=== PATIENT | male | born 1975 | race African-American/Black ===

== ENCOUNTER 2018-08-02 21:50 | Emergency (ER) | payer OTHER, SELFPAY ==
[2018-08-02] MEDS ORDERED: TETRACAINE HCL 0.5% 2ML OPTH ONE ×2 (22:27→22:42)
[2018-08-02] MEDS ORDERED: FLUORESCEIN SODIUM 1 MG/WRAP ONE ×2 (22:27→22:42)
--- NOTE | 2018-08-02 22:36 | EDPHYS ---
Physician Documentation [facility] Name: Primo Leos Age: 42 yrs Sex: Male : 1975 Arrival Date: 08/02/2018 Time: 21:54 Bed 30 Private MD: ED Physician Lorenzo Santizo HPI: 08/02 22:31 This 42 yrs old Black Male presents to ER via Ambulatory with complaints of Foreign tw4 Body In Eye. 22:31 The patient is experiencing pain, The patient sustained Unknown. to the right eye. tw4 Onset: The symptoms/episode began/occurred 2 day(s) ago. Duration: the symptoms are continuous. Aggravated by blinking, Alleviated by covering eye. Associated signs and symptoms: Pertinent positives: None. Pertinent negatives: None. Severity of symptoms: At their worst the symptoms were moderate in the emergency department the symptoms are unchanged. The patient has not experienced similar symptoms in the past. Historical: - Allergies: 22:26 No Known Allergies; bb - Home Meds: 22:26 None [Active]; bb - PMHx: 22:26 None; bb - PSHx: 22:26 None; bb - Immunization history:: Adult Immunizations up to date, Last tetanus immunization: up to date. - Social history:: Smoking status: Patient uses tobacco products, smokes one pack cigarettes per day. - Ebola Screening: : No symptoms or risks identified at this time. ROS: 22:31 Constitutional: Negative for fever, chills, and weight loss. tw4 22:31 Eyes: Positive for foreign body sensation, Negative for blurry vision, discharge, injury or acute deformity, itching, matting, photophobia, redness, swelling, tearing. Exam: 22:31 Constitutional: This is a well developed, well nourished patient who is awake, alert, tw4 and in no acute distress. Head/Face: Normocephalic, atraumatic. 22:31 Eyes: Periorbital structures: appear normal, Pupils: no acute changes, Conjunctiva: injected, in the right eye, Corneas: foreign body, at 12 o'clock, a piece of plastic. Vital Signs: 22:26 BP 133 / 86; Pulse 70; Resp 16 S; Temp 99.1(O); Pulse Ox 97% on R/A; Weight 113.4 kg bb (R); Height 6 ft. 1 in. (185.42 cm) (R); Pain 9/10; 22:26 Body Mass Index 32.98 (113.40 kg, 185.42 cm) bb Visual Acuity: 22:26 Left Eye Visual acuity 20/15, Pupil size 3 mm, ; Right Eye Visual acuity 20/20, Pupil bb size 3 mm, ; Both Eyes Visual acuity 20/15; Without Lenses; Procedures: 22:31 Foreign Body Removal: a piece of metal, from the right eye, conjunctiva by using a tw4 cotton-tipped swab, normal saline irrigation, The patient tolerated the removal well. MDM: 22:12 Patient medically screened. tw4 22:31 Differential diagnosis: Corneal abrasion of right eye. Corneal ulcer of right eye. tw4 Foreign body in right eye. Data reviewed: vital signs, nurses notes. Counseling: I had a detailed discussion with the patient and/or guardian regarding: the historical points, exam findings, and any diagnostic results supporting the discharge/admit diagnosis. Special discussion: I discussed with the patient/guardian in detail that at this point there is no indication for admission to the hospital. It is understood, however, that if the symptoms persist or worsen the patient needs to return immediately for re-evaluation. 08/02 22:29 Order name: Eye Tray; Complete Time: 22:30 bb 08/02 22:29 Order name: Fluoresene Opth strip; Complete Time: 22:30 bb Administered Medications: 22:20 Drug: Tetracaine Drops 0.5 % 1 drops Route: Ophthalmic; Site: right eye; bb 22:30 Follow up: Response: Marked relief of symptoms bb 22:20 Drug: Fluorescein Strip 1 strip Route: Ophthalmic; Site: right eye; bb 22:30 Follow up: Response: No adverse reaction bb Disposition: 08/02/18 22:35 Discharged to Home. Impression: Injury of conjunctiva and corneal abrasion without foreign body, right eye, Foreign body in cornea, right eye. - Condition is Stable. - Discharge Instructions: Corneal Abrasion, Eye Foreign Body. - Prescriptions for Gentamicin 0.3 % Ophthalmic Drops - instill 1 drop by OPHTHALMIC route every 4 hours for 7 days; 1 bottle. - Medication Reconciliation Form, Thank You Letter, Antibiotic Education, Prescription Opioid Use form. - Follow up: Private Physician; When: Upon discharge from the Emergency Department; Reason: If symptoms return, Recheck today's complaints, Continuance of care. - Problem is new. - Symptoms have improved. Signatures: Renu Silverio RN RN Lorenzo Van MD MD tw4 Corrections: (The following items were deleted from the chart) 22:48 22:35 08/02/2018 22:35 Discharged to Home. Impression: Injury of conjunctiva and bb corneal abrasion without foreign body, right eye; Foreign body in cornea, right eye. Condition is Stable. Forms are Medication Reconciliation Form, Thank You Letter, Antibiotic Education, Prescription Opioid Use. Follow up: Private Physician; When: Upon discharge from the Emergency Department; Reason: If symptoms return, Recheck today's complaints, Continuance of care. Problem is new. Symptoms have improved. tw4
--- NOTE | 2018-08-02 22:36 | ER ---
Nurse's Notes [facility] Name: Primo Leos Age: 42 yrs Sex: Male : 1975 Arrival Date: 08/02/2018 Time: 21:54 Bed 30 Private MD: Diagnosis: Injury of conjunctiva and corneal abrasion without foreign body, right eye;Foreign body in cornea, right eye Presentation: 08/02 22:06 Presenting complaint: Patient states: he was working on his car about 2 days ago and bb got something in his right eye which has felt irritated ever since then his noticed he had an orange spot on his cornea. Transition of care: patient was not received from another setting of care. Onset of symptoms was July 30, 2018. Risk Assessment: Do you want to hurt yourself or someone else? Patient reports no desire to harm self or others. Initial Sepsis Screen: Does the patient meet any 2 criteria? No. Patient's initial sepsis screen is negative. Does the patient have a suspected source of infection? No. Patient's initial sepsis screen is negative. Care prior to arrival: None. 22:06 Method Of Arrival: Ambulatory bb 22:06 Acuity: BRAEDEN 4 bb Triage Assessment: 22:26 General: Appears in no apparent distress. uncomfortable, Behavior is calm, cooperative. bb Pain: Complains of pain in right eye Pain currently is 9 out of 10 on a pain scale. EENT: Eyes are tearing on right eye with foreign body noted in cornea. Neuro: Level of Consciousness is awake, alert, obeys commands, Oriented to person, place, time, situation. Cardiovascular: No deficits noted. Respiratory: Respiratory effort is even, unlabored. GI: No signs and/or symptoms were reported involving the gastrointestinal system. Derm: Skin is dry, Skin is normal, Skin temperature is warm. Musculoskeletal: Circulation, motion, and sensation intact. Historical: - Allergies: 22:26 No Known Allergies; bb - Home Meds: 22:26 None [Active]; bb - PMHx: 22:26 None; bb - PSHx: 22:26 None; bb - Immunization history:: Adult Immunizations up to date, Last tetanus immunization: up to date. - Social history:: Smoking status: Patient uses tobacco products, smokes one pack cigarettes per day. - Ebola Screening: : No symptoms or risks identified at this time. Screenin:31 Abuse screen: Denies threats or abuse. Nutritional screening: No deficits noted. bb Tuberculosis screening: No symptoms or risk factors identified. Fall Risk None identified. Assessment: 22:31 Reassessment: No changes from previously documented assessment. see triage assessment. bb Vital Signs: 22:26 BP 133 / 86; Pulse 70; Resp 16 S; Temp 99.1(O); Pulse Ox 97% on R/A; Weight 113.4 kg bb (R); Height 6 ft. 1 in. (185.42 cm) (R); Pain 9/10; 22:26 Body Mass Index 32.98 (113.40 kg, 185.42 cm) bb Visual Acuity: 22:26 Left Eye Visual acuity 20/15, Pupil size 3 mm, ; Right Eye Visual acuity 20/20, Pupil bb size 3 mm, ; Both Eyes Visual acuity 20/15; Without Lenses; ED Course: 21:54 Patient arrived in ED. es 22:12 Lorenzo Santizo MD is Attending Physician. tw4 22:24 Renu Silverio, RN is Primary Nurse. bb 22:25 Triage completed. bb 22:26 Arm band placed on Patient placed in an exam room, on a stretcher, on pulse oximetry. bb Family accompanied patient. 22:31 Patient has correct armband on for positive identification. Bed in low position. Call bb light in reach. Adult w/ patient. Pulse ox on. NIBP on. 22:31 Assist provider with eye exam of right eye. using fluorescein stain, Performed by caleb Santizo MD Patient tolerated well. Patient did not have IV access during this emergency room visit. Administered Medications: 22:20 Drug: Tetracaine Drops 0.5 % 1 drops Route: Ophthalmic; Site: right eye; bb 22:30 Follow up: Response: Marked relief of symptoms bb 22:20 Drug: Fluorescein Strip 1 strip Route: Ophthalmic; Site: right eye; bb 22:30 Follow up: Response: No adverse reaction bb Outcome: 22:35 Discharge ordered by . tw4 22:47 Discharged to home ambulatory, with family. bb 22:47 Condition: stable 22:47 Discharge instructions given to patient, Instructed on discharge instructions, follow up and referral plans. medication usage, Demonstrated understanding of instructions, follow-up care, medications, Prescriptions given X 1. 22:48 Patient left the ED. bb Signatures: Kimber Oneill Brenda, RN RN bb Lorenzo Santizo MD MD tw4
== END 2018-08-02 22:48 | disposition home or self-care (01) ==
LOC: ER 21:50
PROC: 08C8XZZ Extirpation of Matter from Right Cornea, External Approach (ICD-10-PCS; principal; 2018-08-02)
DX: T15.01XA Foreign body in cornea, right eye, initial encounter (principal); F17.210 Nicotine dependence, cigarettes, uncomplicated
CPT/HCPCS: 99284

== ENCOUNTER 2020-12-15 14:01 | Emergency (ER) | payer OTHER, SELFPAY ==
[2020-12-15 16:36] LABS: Absolute Lymphocytes (CBC) 1.7 K/uL (0.7-4.9); Basophils % 0.6 % (0-1.3); Hematocrit 46.7 % (39.6-49.0); Lymphocytes % 13.4 % (15.3-44.8); MPV 8.5 fL (7.6-11.3); RBC Red Blood Cell Count 5.58 M/uL (4.33-5.43)
[2020-12-15 16:49] LABS: Potassium 3.8 mmol/L (3.5-5.1); Uric Acid 3.2 mg/dL (3.5-7.2)
[2020-12-15] MEDS ORDERED: NA CHLORIDE 0.9% 1,000 ML ONE (17:08)
[2020-12-15] MEDS ORDERED: KETOROLAC 30 MG/ML INJ ONE (17:08)
[2020-12-15] MEDS ORDERED: HYDROCODONE/APAP 7.5/325 MG TAB ONE (17:08)
[2020-12-15] MEDS ORDERED: CLINDAMYCIN 900MG/D5W 900 MG/50 ML IVPB IV ONE (17:08)
--- NOTE | 2020-12-15 17:42 | RAD REPORT ---
EXAM DESCRIPTION: RAD - Elbow Right 3 View - 12/15/2020 5:21 pm CLINICAL HISTORY: PAIN COMPARISON: None FINDINGS: No right elbow fracture. Small olecranon spur. No effusion. IMPRESSION: No acute osseus abnormality involving the right elbow.
--- NOTE | 2020-12-15 17:43 | EDPHYS ---
Physician Documentation [facility] Name: Primo Leos Age: 45 yrs Sex: Male : 1975 Arrival Date: 12/15/2020 Time: 14:07 Bed 25 Private MD: ED Physician Lorenzo Santizo HPI: 12/15 16:05 This 45 yrs old Black Male presents to ER via Ambulatory with complaints of Elbow pain, cp Arm Pain. 16:05 The patient or guardian complains of pain, that is acute, swelling, tenderness. The cp complaints affect the right elbow. Context: resulted from unknown cause. Onset: The symptoms/episode began/occurred 2 day(s) ago. 16:05 Treatment prior to arrival includes: no previous treatment. Associated signs and cp symptoms: Pertinent positives: radiating pain to chest, Pertinent negatives: decreased range of motion, fever, injury. Historical: - Allergies: 14:41 No Known Allergies; ss - Home Meds: 14:41 None [Active]; ss - PMHx: 14:41 None; ss - PSHx: 14:41 None; ss - Immunization history:: Adult Immunizations unknown, Client reports having NOT received the Covid vaccine. - Social history:: Smoking status: Patient reports the use of cigarette tobacco products, smokes one pack cigarettes per day. ROS: 16:10 Constitutional: Negative for body aches, chills, fever, poor PO intake. cp 16:10 MS/extremity: Positive for pain, swelling, tenderness, of the right elbow, Negative for cp injury or acute deformity, decreased range of motion, paresthesias. 16:10 Eyes: Negative for injury, pain, redness, and discharge. cp 16:10 ENT: Negative for ear pain, sore throat, difficulty swallowing, difficulty handling secretions. 16:10 Cardiovascular: Negative for edema, palpitations. 16:10 Respiratory: Negative for cough, shortness of breath, wheezing. 16:10 Abdomen/GI: Negative for abdominal pain, nausea, vomiting, and diarrhea. 16:10 Neuro: Negative for altered mental status, headache, weakness. 16:10 All other systems are negative. Exam: 16:15 Constitutional: The patient appears in no acute distress, alert, awake, cp non-diaphoretic, non-toxic, well developed, well nourished, uncomfortable. 16:15 Head/Face: Normocephalic, atraumatic. cp 16:15 Eyes: Periorbital structures: appear normal, Conjunctiva: normal, no exudate, no injection, Sclera: no appreciated abnormality, Lids and lashes: appear normal, bilaterally. 16:15 ENT: External ear(s): are unremarkable, Nose: is normal, Posterior pharynx: Airway: no evidence of obstruction, patent. 16:15 Chest/axilla: Inspection: normal. 16:15 Cardiovascular: Rate: normal, Rhythm: regular. 16:15 Respiratory: the patient does not display signs of respiratory distress, Respirations: normal, no use of accessory muscles, no retractions, labored breathing, is not present. 16:15 Abdomen/GI: Exam negative for discomfort, distension, guarding, Inspection: abdomen appears normal. 16:15 Musculoskeletal/extremity: Extremities: grossly normal except: noted in the posterior of right elbow: erythema, pain, swelling, tenderness, ROM: full passive range of motion, in the right elbow, limited passive range of motion due to pain, in the right elbow, no signs of elbow joint effusion, small amount purulent drainage from right elbow bursa, mild erythema and swelling extending proximal and distal to right elbow, no circumferential swelling and/or erythema noted. Vital Signs: 14:39 BP 130 / 82; Pulse 86; Resp 20; Temp 97.1(TE); Pulse Ox 95% on R/A; Weight 95.25 kg; ss Height 6 ft. 1 in. (185.42 cm); Pain 10/10; 16:26 BP 112 / 68; Pulse 81; Resp 16; Temp 97.4(TE); Pulse Ox 96% ; ss 17:55 BP 110 / 74; Pulse 81; Resp 16; Pulse Ox 94% ; zb 14:39 Body Mass Index 27.71 (95.25 kg, 185.42 cm) ss MDM: 16:33 Patient medically screened. cp 17:00 Differential diagnosis: cellulitis, bursitis, abscess, gout. cp 17:00 Differential diagnosis: closed fracture, contusion, joint effusion, bursitis, cp cellulitis. 17:34 Test interpretation: by ED physician or midlevel provider: xrays of right elbow cp negative for fracture and/or joint effusion. 17:40 Data reviewed: vital signs, nurses notes, lab test result(s), radiologic studies, plain cp films. Counseling: I had a detailed discussion with the patient and/or guardian regarding: the historical points, exam findings, and any diagnostic results supporting the discharge/admit diagnosis, lab results, radiology results, the need for outpatient follow up, a orthopedic surgeon. Response to treatment: the patient's symptoms have markedly improved after treatment, Pain improved, patient resting comfortably in exam room, and as a result, I will discharge patient. 12/15 16:04 Order name: Wound Culture cp 12/15 16:04 Order name: CBC with Diff; Complete Time: 17:32 cp 12/15 17:33 Interpretation: Normal except: WBC 12.70; RBC 5.58; EOSINOPHIL % 4.9; NEUT A 9.2; EOSA cp 0.6. 12/15 16:04 Order name: BMP; Complete Time: 17:32 cp 12/15 17:33 Interpretation: Normal except: NA 134; GLUC 257; BUN 19; GFR 85. cp 12/15 16:04 Order name: ESR; Complete Time: 17:32 cp 12/15 16:04 Order name: CRP; Complete Time: 17:32 cp 12/15 17:33 Interpretation: Abnormal: C-REACTIVE PROT 124.00. cp 12/15 16:04 Order name: Uric Acid; Complete Time: 17:32 cp 12/15 17:33 Interpretation: Abnormal: URIC 3.2. cp 12/15 16:04 Order name: IV; Complete Time: 16:23 cp 12/15 16:04 Order name: XRAY Elbow RIGHT 3 view; Complete Time: 17:44 cp 12/15 17:44 Interpretation: Report reviewed. cp 12/15 16:04 Order name: Wound Culture EDDE 12/15 17:43 Order name: Sling; Complete Time: 18:06 cp Administered Medications: 17:01 Drug: Clindamycin 900 mg Route: IVPB; Infused Over: 30 mins; Site: left antecubital; zb 18:00 Follow up: Response: No adverse reaction; IV Status: Completed infusion; IV Intake: zb 100ml 17:01 Drug: Ketorolac 15 mg Route: IVP; Site: left antecubital; zb 18:00 Follow up: Response: No adverse reaction; Marked relief of symptoms; Pain is decreased zb 17:01 Drug: Hydrocodone-Acetaminophen (7.5 mg-325 mg) 1 tabs {Note: RASS +1.} Route: PO; zb 18:00 Follow up: Response: No adverse reaction; Pain is decreased; RASS: Alert and Calm (0) zb 17:01 Drug: NS 0.9% 1000 ml Route: IV; Rate: 1 bolus; Site: left antecubital; zb 18:00 Follow up: Response: No adverse reaction; IV Status: Completed infusion; IV Intake: zb 1000ml Disposition: 17:50 Chart complete. cp 18:34 Co-signature as Attending Physician, Lorenzo Santizo MD I agree with the assessment and tw4 plan of care. Disposition Summary: 12/15/20 17:42 Discharge Ordered Location: Home cp Problem: new cp Symptoms: have improved cp Condition: Stable cp Diagnosis - Olecranon bursitis, right elbow cp - Cellulitis of right upper limb cp Followup: cp - With: Kennedy Leigh MD - When: 2 - 3 days - Reason: Recheck today's complaints Discharge Instructions: - Discharge Summary Sheet cp - Cellulitis, Adult cp - Elbow Bursitis cp Forms: - Medication Reconciliation Form cp - Thank You Letter cp - Antibiotic Education cp - Prescription Opioid Use cp Prescriptions: - Clindamycin HCl 300 mg Oral Capsule - take 1 capsule by ORAL route every 6 hours for 10 days; 40 capsule; Refills: 0, cp Product Selection Permitted - Diclofenac Sodium 75 mg Oral Tablet Sustained Release - take 1 tablet by ORAL route 2 times per day; 30 tablet; Refills: 0, Product cp Selection Permitted - Bactrim DS 800-160 mg Oral Tablet - take 1 tablet by ORAL route every 12 hours for 10 days; 20 tablet; Refills: 0, cp Product Selection Permitted Signatures: Dispatcher [employer] Maris Bennett RN RN ss Chavez Saleem PA PA cp Lorenzo Santizo MD MD tw4 Megha Haskins RN RN zb Corrections: (The following items were deleted from the chart) 17:33 17:32 Normal except: WBC 12.70; RBC 5.58. cp cp
--- NOTE | 2020-12-15 17:43 | ER ---
Nurse's Notes [facility] Name: Primo Leos Age: 45 yrs Sex: Male : 1975 Arrival Date: 12/15/2020 Time: 14:07 Bed 25 Private MD: Diagnosis: Olecranon bursitis, right elbow;Cellulitis of right upper limb Presentation: 12/15 14:39 Chief complaint: Patient states: pain, swelling and small amount of drainage to R elbow ss that has been ongoing for 2 days. Pt believes it may be a spider bite. Coronavirus screen: Client denies travel out of the [place] in the last 14 days. Ebola Screen: Patient denies exposure to infectious person. Patient denies travel to an Ebola-affected area in the 21 days before illness onset. Initial Sepsis Screen: Does the patient meet any 2 criteria? No. Patient's initial sepsis screen is negative. Does the patient have a suspected source of infection? No. Patient's initial sepsis screen is negative. Risk Assessment: Do you want to hurt yourself or someone else? Patient reports no desire to harm self or others. Onset of symptoms was December 13, 2020. 14:39 Method Of Arrival: Ambulatory ss 14:39 Acuity: BRAEDEN 3 ss Triage Assessment: 17:56 General: Appears in no apparent distress. Behavior is calm. Pain: Complains of pain in zb right elbow. Cardiovascular: No deficits noted. Respiratory: No deficits noted. GI: No deficits noted. : No deficits noted. Derm: No deficits noted. Musculoskeletal: Swelling present in right elbow. Historical: - Allergies: 14:41 No Known Allergies; ss - Home Meds: 14:41 None [Active]; ss - PMHx: 14:41 None; ss - PSHx: 14:41 None; ss - Immunization history:: Adult Immunizations unknown, Client reports having NOT received the Covid vaccine. - Social history:: Smoking status: Patient reports the use of cigarette tobacco products, smokes one pack cigarettes per day. Screenin:56 Abuse screen: Denies threats or abuse. Denies injuries from another. Nutritional zb screening: No deficits noted. Tuberculosis screening: No symptoms or risk factors identified. Fall Risk None identified. Vital Signs: 14:39 BP 130 / 82; Pulse 86; Resp 20; Temp 97.1(TE); Pulse Ox 95% on R/A; Weight 95.25 kg; ss Height 6 ft. 1 in. (185.42 cm); Pain 10/10; 16:26 BP 112 / 68; Pulse 81; Resp 16; Temp 97.4(TE); Pulse Ox 96% ; ss 17:55 BP 110 / 74; Pulse 81; Resp 16; Pulse Ox 94% ; zb 14:39 Body Mass Index 27.71 (95.25 kg, 185.42 cm) ED Course: 14:07 Patient arrived in ED. mr 14:40 Triage completed. ss 14:41 Arm band placed on right wrist. ss 16:01 Chavez Saleem PA is PHCP. cp 16:01 Lorenzo Santizo MD is Attending Physician. cp 16:22 Initial lab(s) drawn, by ca, sent to lab. Wound culture swab sent to lab. Inserted mh5 saline lock: 20 gauge in left antecubital area, using aseptic technique. Blood collected. 16:23 Patient has correct armband on for positive identification. Bed in low position. Call mh5 light in reach. Side rails up X 1. Pulse ox on. NIBP on. 16:23 Wound Culture Sent. mh5 16:23 Uric Acid Sent. mh5 16:23 CRP Sent. mh5 16:24 BMP Sent. mh5 16:24 ESR Sent. mh5 16:24 CBC with Diff Sent. mh5 16:24 Wound Culture Sent. mh5 16:40 Megha Haskins, RN is Primary Nurse. zb 17:21 XRAY Elbow RIGHT 3 view In Process Unspecified. EDMS 17:41 Kennedy Leigh MD is Referral Physician. cp 17:57 No provider procedures requiring assistance completed. IV discontinued, intact, zb bleeding controlled, No redness/swelling at site. Pressure dressing applied. Administered Medications: 17:01 Drug: Clindamycin 900 mg Route: IVPB; Infused Over: 30 mins; Site: left antecubital; zb 18:00 Follow up: Response: No adverse reaction; IV Status: Completed infusion; IV Intake: zb 100ml 17:01 Drug: Ketorolac 15 mg Route: IVP; Site: left antecubital; zb 18:00 Follow up: Response: No adverse reaction; Marked relief of symptoms; Pain is decreased zb 17:01 Drug: Hydrocodone-Acetaminophen (7.5 mg-325 mg) 1 tabs {Note: RASS +1.} Route: PO; zb 18:00 Follow up: Response: No adverse reaction; Pain is decreased; RASS: Alert and Calm (0) zb 17:01 Drug: NS 0.9% 1000 ml Route: IV; Rate: 1 bolus; Site: left antecubital; zb 18:00 Follow up: Response: No adverse reaction; IV Status: Completed infusion; IV Intake: zb 1000ml Intake: 18:00 IV: 1000ml; Total: 1000ml. zb 18:00 IV: 100ml; Total: 1100ml. zb Outcome: 17:42 Discharge ordered by MD. ammi 17:57 Discharged to home ambulatory. zb 17:57 Condition: stable 17:57 Discharge instructions given to patient, Instructed on discharge instructions, follow up and referral plans. medication usage, Demonstrated understanding of instructions, follow-up care, medications, Prescriptions given X 3. 18:04 Patient left the ED. zb Signatures: Dispatcher [employer] [facility] FreemanLeanne leong Shelby, RN RN Chavez Tejada, Josiane Guaman cp [facility] Megha Haskins RN RN zb Corrections: (The following items were deleted from the chart) 18:05 17:57 Discharge instructions given to patient, Instructed on discharge instructions, zb follow up and referral plans. medication usage, Demonstrated understanding of instructions, follow-up care, medications, Prescriptions given X 2, zb
[2020-12-15 18:14] VITALS: TEMP 97.4
[2020-12-15 18:15] VITALS: BP 110/74; O2SAT 94
== END 2020-12-15 18:04 | disposition home or self-care (01) ==
LOC: ER 14:01
DX: M70.21 Olecranon bursitis, right elbow (principal); L03.113 Cellulitis of right upper limb; Z72.0 Tobacco use
CPT/HCPCS: 36415; 80048; 84550; 85025; 85652; 86140; 87070; 87077; 87186; 87205; 96365; 96375; 99284; J7030

== ENCOUNTER 2021-07-17 22:28 | Inpatient (IN) | payer SELFPAY ==
--- OUTSIDE RECORDS SUMMARY | 2021-07-17 22:32 | XMS REPORT | Continuity of Care Document ---
:1975 Author Organization [facility] t Address [address] [place] [address] Care Team Providers Name Role Phone PCP, DOES NOT HAVE A Primary Care Physician Unavailable Miss Doreen Attending Clinician Unavailable Ebrahim OFFICE CLERK ASSISTANT Attending Clinician EBRAHIM Attending Clinician Unavailable EBRAHIM Admitting Clinician Unavailable Payers Payer Name Policy Type Policy Number Effective Date Expiration Date S ource Problems This patient has no known problems. Allergies, Adverse Reactions, Alerts Allergy Allergy Status Severity Reaction(s) Onset Inactive Treating Comm ents Source Name Type Date Date Clinician NO KNOWN Drug Active Univers ALLERGIE Class ity of S [facility] Social History Social Habit Start Date Stop Date Quantity Comments Source Exposure to Not sure [facility] SARS-CoV-2 (event) Medica l Branch Sex Assigned At [birth year] [facility] 00:00:00 00:00:00 [facility] Smoking Status Start Date Stop Date Source Unknown if ever smoked [facility] Medications Ordered Filled Start Stop Current Ordering Indication Dosage Frequency Signature Comments Components Source Medication Medication Date Date Medication? Clinician (SIG) Name Name insulin 2021- No 10U 10 Units, Univ ers regular 05-03 Slow IV ity [facility] ONCE, 1 Medic al injection dose, On Branch 10 Units 05/03/21 at 1400, Routine NaCl 0.9% 2021- No 1000mL at 999 Uni vers (NS) bolus 05-03 mL/hr, ity of infusion 19:00: 18:57 1,000 mL, Abiel as 1,000 mL 00 :00 IV Medical Infusion, Branch ONCE, 1 dose, On 05/03/21 at 1300, JERI metFORMIN 2021- Yes [id number] 500mg Take 1 Univers 500 mg 05-03 tablet by ity of tablet 00:00: 05:59 mouth 2 [place] 00 :00 (two) Medical times Branch daily with meals for 30 days. cyclobenzap Yes 5mg Take 1 Univ ers rine 7-29 tablet by ity of (FLEXERIL) 00:00: mouth at Abiel as 5 mg tablet 00 bedtime. [facility] naproxen Yes 550mg Take 1 [facility] sodium 7-29 tablet by ity of (ANAPROX) 00:00: mouth 2 [place] 550 mg 00 (two) Medical tablet times [place] daily with meals. Vital Signs Vital Name Observation Time Observation Value Comments Source Heart rate 2021-05-03 19:30:00 89 /min [facility] Respiratory rate 2021-05-03 19:30:00 18 /min [facility] Oxygen saturation in 2021-05-03 19:30:00 95 /min [facility] Arterial blood by [facility] Pulse oximetry Branch Systolic blood 2021-05-03 19:00:00 141 mm[Hg] [facility] Diastolic blood 2021-05-03 19:00:00 80 mm[Hg] [facility] Body temperature 2021-05-03 17:52:00 36.78 Corie [facility] Body weight 2021-05-03 17:52:[address] [facility] BMI 2021-05-03 17:52:00 28.37 kg/m2 [facility] Procedures Procedure Date / Time Performed Performing Clinician Sourc e POCT GLUCOSE 2021-05-03 19:38:00 García Sylvester o f [place] (AUTOMATED) [facility] XR CHEST 1 VW 2021-05-03 18:11:17 García Sylvester [facility] ACUTE CARE VENOUS 2021-05-03 18:04:00 Nga [facility] BLOOD GAS [facility] Branch TROPONIN I 2021-05-03 18:03:00 Nga [facility] COMP. METABOLIC PANEL 2021-05-03 18:03:00 García Sylvester [facility] ([id number]) [facility] CBC WITH DIFF 2021-05-03 18:03:00 Nga [facility] URINALYSIS 2021-05-03 18:03:00 Nga [facility] N-TERMINAL PRO-BNP 2021-05-03 18:03:00 García Sylvester [facility] COVID-19 (ID NOW RAPID 2021-05-03 18:03:00 García Sylvester [facility] TESTING) [facility] NOTICE OF PRIVACY 2021-05-03 17:47:59 Doctor Unassigned, No Univ [facility] PRACTICES Name [facility] CONSENT/REFUSAL FOR 2021-05-03 17:44:44 Doctor Unassigned, No [facility] DIAGNOSIS AND Name Medical [place] TREATMENT Encounters Start End Encounter Admission Attending Care Care Encounter Source Date/Time Date/Time Type Type Clinicians Facility Department ID 2021-07-08 Outpatient Chadzuleikamichael, [facility] [id number] FAKE 08:45:23 August 9.0- OID 08 2021-05-03 2021-05-03 Emergency [facility] [id number] Univers 11:58:00 14:10:00 García LARKIN [id number] i ty [facility] [id number] [facility] [id number] [facility] 084 Branch 2021-05-03 2021-05-03 [facility] [id number] Univers 11:58:00 14:10:00 GARCÍA [facility] Results Test Description Test Time Test Comments Results Result Comments Source POCT GLUCOSE (AUTOMATED) 2021-05-03 19:41:16 Test Item Value Reference Range Interpretation Comme nts POCT GLU (test code = 3715158892) 388 mg/dL 70-110 H Lab Interpretation (test code = 86932-8) [id number] 18:48:50 Test Item Value Reference Interpretation Comments Range TROPONIN I (test 0.005 ng/mL See_Comment [Automated code = 5858396389) message] The system which generated this result transmitted reference range : <=0.034. The reference range was not used to interpret this result as normal/abnormal . TIM (test code = Reference (Normal) TIM) Range (defined by the 99th percentile reference limit): <= 0.034 ng/mL Note: Cardiac troponin begins to rise 3-4 hours after the onset of ischemia. Repeat in 4-6 hours if the sample was drawn within 3-4 hours of the onset of the symptom and found normal. Diagnosis of myocardial injury is made with acute changes in cTn concentrations with at least one serial sample above the 99th percentile upper reference limit (URL), taken together with the patient's clinical presentation. Biotin has been reported to cause a negative bias, interpret results relative to patient's use of biotin. Lab Interpretation Normal (test code = 79680-4) [facility] ([id number])2021-05-03 18:48:30 Test Item Value Reference Range Interpretation Comments NA (test code = 129 mmol/L 135-145 L 6137723467) K (test code = 4.9 mmol/L 3.5-5.0 8541847435) CL (test code = 91 mmol/L 98-108 L 0007465336) CO2 TOTAL (test code = 25 mmol/L 23-31 1076579074) AGAP (test code = 2-16 3669434422) BUN (test code = 31 mg/dL 7-23 H 5981799665) GLUCOSE (test code = 635 mg/dL 70-110 HH 5022731946) CREATININE (test code = 0.93 mg/dL 0.60-1.25 0111881694) TOTAL BILI (test code = 0.9 mg/dL 0.1-1.1 1610956043) CALCIUM (test code = 9.5 mg/dL 8.6-10.6 9319215235) T PROTEIN (test code = 7.5 g/dL 6.3-8.2 3388791453) ALBUMIN (test code = 4.6 g/dL 3.5-5.0 0561959125) ALK PHOS (test code = 360 U/L 34-122 H 3958908238) ALTv (test code = 38 U/L 5-50 1742-6) AST(SGOT) (test code = 38 U/L 13-40 2173021876) eGFR (test code = mL/min/1.73m2 3110109143) TIM (test code = TIM) Association of Glomerular Filtration Rate (GFR) and Staging of Kidney Disease* + --+ --+ ------+| GFR (mL/min/1.73 m2) ?| With Kidney Damage ?| ?Without Kidney Damage+ --------+ --------+ +| ?>90 ?| ?Stage one ?| ? Normal ?+ ---+ ---+ -------+| ?60-89 ?| ?Stage two ?| ? Decreased GFR ? + --+ --+ ------+| ?30-59 ?| ?Stage three ?| ? Stage three ? + --+ --+ ------+| ?15-29 ?| ?Stage four ? | ? Stage four ?+ ---+ ---+ -------+| ?<15 (or dialysis) ? ?| ?Stage five ? | ? Stage five ?+ ---+ ---+ -------+ *Each stage assumes the associated GFR level has been in effect for at least three months. ?Stages 1 to 5, with or without kidney disease, indicate chronic kidney disease. Notes: Determination of stages one and two (with eGFR >59mL/min/1.73 m2) requires estimation of kidney damage for at least three months as defined by structural or functional abnormalities of the kidney, manifested by either:Pathological abnormalities or Markers of kidney damage (including abnormalities in the composition of the blood or urine or abnormalities in imaging tests). Lab Interpretation Abnormal (test code = 39733-5) [facility] [id number] 18:45:48 Test Item Value Reference Range Interpretation Comments NT-proBNP (test code 30 pg/mL See_Comment [Autom ated = 7275018764) message] The system which generated this result transmitted reference range : <=125. The reference range was not used to interpret this result as normal/abnormal . TIM (test code = TIM) Biotin has been reported to cause a negative bias, interpret results relative to patient's use of biotin. Lab Interpretation Normal (test code = 52999-7) [facility] WITH [id number] 18:16:28 Test Item Value Reference Range Interpretation Comments WBC (test code = See_Comment [Automated 9290-2) message] The sy stem which generated this result transmitted reference range : 4.20 - 10.70 10*3/?L. The reference range was not used to interpret this result as normal/abnormal . RBC (test code = See_Comment [Automated 789-8) message] The sy stem which generated this result transmitted reference range : 4.26 - 5.52 10*6/?L. The reference range was not used to interpret this result as normal/abnormal . HGB (test code = 15.4 g/dL 12.2-16.4 718-7) HCT (test code = 46.3 % 38.4-49.3 4544-3) MCV (test code = 84.6 fL 81.7-95.6 787-2) MCH (test code = 28.2 pg 26.1-32.7 785-6) MCHC (test code = 33.3 g/dL 31.2-35.0 786-4) RDW-SD (test code = 39.7 fL 38.5-51.6 50302-4) RDW-CV (test code = 12.8 % 12.1-15.4 788-0) PLT (test code = See_Comment H [Automated 777-3) message] The sy stem which generated this result transmitted reference range : 150 - 328 10*3/ ?L. The reference r junior was not used to interpret this result as normal/abnormal . MPV (test code = 11.0 fL 9.8-13.0 48644-7) NRBC/100 WBC (test See_Comment [Automat ed code = 0690478589) message] The system which generated this result transmitted reference range : 0.0 - 10.0 /100 WBCs. The refer ence range was not u sed to interpret th is result as normal/abnormal . NRBC x10^3 (test code <0.01 See_Comment [Auto mated = 3074758254) message] The s ystem which generated this result transmitted reference range : 10*3/?L. The reference range was not used to interpret this result as normal/abnormal . GRAN MAT (NEUT) % 61.2 % (test code = 770-8) IMM GRAN % (test code 0.80 % = 0140598228) LYMPH % (test code = 24.2 % 736-9) MONO % (test code = 7.0 % 5905-5) EOS % (test code = 6.2 % 713-8) BASO % (test code = 0.6 % 706-2) GRAN MAT x10^3(ANC) 4.04 10*3/uL 1.99-6.95 (test code = 4145251570) IMM GRAN x10^3 (test 0.05 10*3/uL 0.00-0.06 code = 5511878612) LYMPH x10^3 (test code 1.60 10*3/uL 1.09-3.23 = 731-0) MONO x10^3 (test code 0.46 10*3/uL 0.36-1.02 = 742-7) EOS x10^3 (test code = 0.41 10*3/uL 0.06-0.53 711-2) BASO x10^3 (test code 0.04 10*3/uL 0.01-0.09 = 704-7) Lab Interpretation Abnormal (test code = 00976-0) [facility] CARE VENOUS BLOOD [id number] 18:12:27 Test Item Value Reference Range Interpretation Comments PH (test code = 7.32-7.42 4186098826) PCO2 SLOAN (test code = See_Comment [Auto mated message] 3705904803) The system [employer] generated this result transmitted ref erence range: 41 - 51 mmHg. The reference r junior was not used to interpret this result as normal/abnor mal. PO2 SLOAN (test code = See_Comment HH [Autom ated message] 1866772632) The system [employer] generated this result transmitted ref erence range: 25 - 40 mmHg. The reference r junior was not used to interpret this result as normal/abnor mal. HCO3 SLOAN (test code = See_Comment [Auto mated message] 3539374486) The system [employer] generated this result transmitted ref erence range: 24 - 28 mEq/L. The reference r junior was not used to interpret this result as normal/abnor mal. AC VBE(BEAKER) (test mEq/L code = 9652915846) Lab Interpretation (test Abnormal code = 74794-1) [facility]"
[2021-07-17] MEDS ORDERED: ASPIRIN 81 MG CHEWABLE TABLET ONE (22:43)
[2021-07-17 22:50] LABS: Urine Blood Negative (Negative); Urine Glucose 2+ (Negative); Urine Protein Negative (Negative); Urine Specific Gravity 1.015 (1.005-1.030); Urine pH 6.5 (5.0-7.0)
[2021-07-17 22:55] LABS: Absolute Lymphocytes (CBC) 1.4 K/uL (0.7-4.9); Hematocrit 43.2 % (39.6-49.0); Lymphocytes % 24.6 % (15.3-44.8); MPV 8.6 fL (7.6-11.3); Protime INR 0.91; RBC Red Blood Cell Count 4.98 M/uL (4.33-5.43)
[2021-07-17 23:15] LABS: Potassium 5.3 mmol/L (3.5-5.1)
[2021-07-17 23:16] LABS: Troponin High Sensitivity 60.7 pg/mL (<58.9)
[2021-07-17 23:26] LABS: Barbiturates NEGATIVE (NEGATIVE); Benzodiazepines NEGATIVE (NEGATIVE); Cocaine POSITIVE (NEGATIVE); METHAMPHETAM NEGATIVE (NEGATIVE); Methadone NEGATIVE (NEGATIVE); Opiates NEGATIVE (NEGATIVE); Phencyclidine NEGATIVE (NEGATIVE); THC Cannibis NEGATIVE (NEGATIVE)
[2021-07-17] MEDS ORDERED: INSULIN -REGULAR HUMAN 50 UNIT/0.5 ML ML ONE (23:31)
[2021-07-17] MEDS ORDERED: NA CHLORIDE 0.9% 1,000 ML ONE (23:31)
--- NOTE | 2021-07-18 00:24 | EDPHYS ---
Physician Documentation [facility] Name: Primo Leos Age: 45 yrs Sex: Male : 1975 Arrival Date: 07/17/2021 Time: 22:29 Bed 25 Private MD: ED Physician Chas Walden HPI: 07/17 22:45 This 45 yrs old Black Male presents to ER via EMS with complaints of Chest Pain > 30 cp y/o, Headache. 22:45 The patient or guardian reports chest pain that is located primarily in the anterior cp chest wall, right. 22:45 Onset: today, 1 hour(s) ago. cp 22:45 The pain does not radiate. Associated signs and symptoms: Pertinent positives: cp headache, Pertinent negatives: abdominal pain, cough, shortness of breath, syncope. The chest pain is described as constant. Duration: The patient or guardian reports a single episode, that is still ongoing, and unchanged. Historical: - Allergies: 07/18 00:30 No Known Allergies; sf1 - Home Meds: 00:24 metformin Oral [Active]; sf1 - PMHx: 00:24 Diabetes mellitus; sf1 - PSHx: 00:24 None; sf1 - Immunization history:: Flu vaccine is not up to date. - Social history:: Smoking status: Patient reports the use of cigarette tobacco products, smokes two packs cigarettes per day. Patient uses street drugs, cocaine, Patient/guardian denies using street drugs. ROS: 07/17 22:50 Constitutional: Negative for body aches, chills, fever, poor PO intake. cp 22:50 Eyes: Negative for injury, pain, redness, and discharge. cp 22:50 ENT: Negative for drainage from ear(s), ear pain, sore throat, difficulty swallowing, difficulty handling secretions. 22:50 Cardiovascular: Positive for chest pain, Negative for edema, palpitations. 22:50 Respiratory: Negative for cough, shortness of breath, wheezing. 22:50 Abdomen/GI: Negative for abdominal pain, vomiting, diarrhea, constipation. 22:50 Back: Negative for radiated pain. 22:50 Neuro: Negative for altered mental status, headache, numbness, weakness. 22:50 All other systems are negative. Exam: 22:53 Constitutional: The patient appears in no acute distress, alert, awake, cp non-diaphoretic, non-toxic, well developed, well nourished, uncomfortable. 22:53 Head/Face: Normocephalic, atraumatic. cp 22:53 Eyes: Periorbital structures: appear normal, Conjunctiva: normal, no exudate, no injection, Sclera: no appreciated abnormality, Lids and lashes: appear normal, bilaterally. 22:53 ENT: External ear(s): are unremarkable, Nose: is normal, Mouth: Lips: moist, Oral mucosa: pink and intact, moist, Posterior pharynx: is normal, airway is patent, no erythema, no exudate. 22:53 Neck: ROM/movement: is normal, is supple, without pain, no range of motions limitations. 22:53 Chest/axilla: Inspection: normal, Palpation: is normal, no crepitus, no tenderness. 22:53 Cardiovascular: Rate: normal, Rhythm: regular, Heart sounds: murmur, not appreciated, Edema: is not appreciated, JVD: is not appreciated. 22:53 Respiratory: the patient does not display signs of respiratory distress, Respirations: normal, no use of accessory muscles, no retractions, labored breathing, is not present, Breath sounds: are clear throughout, no decreased breath sounds, no stridor, no wheezing. 22:53 Abdomen/GI: Inspection: abdomen appears normal, Bowel sounds: normal, in all quadrants, Palpation: abdomen is soft and non-tender, in all quadrants. 22:53 Back: pain, is absent, ROM is normal. 22:53 Neuro: Orientation: to person, place \\T\\ time. Mentation: is normal, Motor: moves all fours, strength is normal, Sensation: is normal. 22:55 ECG was reviewed by the Attending Physician. cp Vital Signs: 07/18 00:19 BP 123 / 72; Pulse 77; Resp 18; Temp 98.3; Pulse Ox 93% on R/A; Weight 81.65 kg; Height sf1 6 ft. 1 in. (185.42 cm); 00:19 Body Mass Index 23.75 (81.65 kg, 185.42 cm) sf MDM: 07/17 22:37 Patient medically screened. cp 23:00 Differential diagnosis: abnormal EKG, acute myocardial infarction, acute pericarditis, cp pleurisy, pneumonia, pneumothorax, stable angina, unstable angina. 07/18 00:25 The patient was given aspirin in the Emergency Department. 00:25 Data reviewed: vital signs, nurses notes, lab test result(s), EKG, radiologic studies, cp CT scan, plain films. Test interpretation: by ED physician or midlevel provider: ECG, plain radiologic studies. Counseling: I had a detailed discussion with the patient and/or guardian regarding: the historical points, exam findings, and any diagnostic results supporting the discharge/admit diagnosis, lab results, radiology results, the need for further work-up and treatment in the hospital. Response to treatment: VSS. Chest pain improved with meds. Discussed positive UA results for cocaine. Patient recent use of cocaine. Will admit for chest pain with elevated troponin. Physician consultation: Ori Hickey was called at 00:20, was contacted at 00:20, regarding admission, to the telemetry unit. 07/17 22:32 Order name: Basic Metabolic Panel 07/17 22:32 Order name: CBC with Diff 07/17 22:32 Order name: Magnesium; Complete Time: 23:21 07/17 22:32 Order name: PT-INR; Complete Time: 23:21 07/17 22:32 Order name: Troponin HS; Complete Time: 23:21 07/17 23:21 Interpretation: Abnormal: Troponin HS 60.70. 07/17 22:32 Order name: UDS; Complete Time: 23:43 07/18 00:05 Interpretation: SAJAN POSITIVE; Reviewed. 07/17 22:32 Order name: XRAY Chest (1 view) 07/17 22:33 Order name: Basic Metabolic Panel; Complete Time: 23:21 EDIN 07/17 23:22 Interpretation: Normal except: K 5.3; GLUC 473; BUN 24; CRE 1.47; GFR 63. 07/17 22:33 Order name: CBC with Automated Diff; Complete Time: 23:21 EDIN 07/17 22:49 Order name: Urine Dipstick-Ancillary; Complete Time: 23:21 EDMS 07/17 23:24 Order name: CT Head Brain wo Cont 07/18 00:29 Order name: Glucose, Ancillary Testing; Complete Time: 00:46 EDIN 07/18 01:37 Order name: COVID-19 SARS RT PCR (Document "Date of Onset" if Symptomatic) [facility] 07/18 02:30 Order name: SARS-COV-2 RT PCR EDMS 07/17 22:32 Order name: EKG; Complete Time: 22:33 cp 07/17 22:32 Order name: Cardiac monitoring; Complete Time: 22:50 cp 07/17 22:32 Order name: EKG - Nurse/Tech; Complete Time: 22:50 cp 07/17 22:32 Order name: IV Saline Lock; Complete Time: 22:50 cp 07/17 22:32 Order name: Labs collected and sent; Complete Time: 22:51 cp 07/17 22:32 Order name: O2 Per Protocol; Complete Time: 22:51 cp 07/17 22:32 Order name: O2 Sat Monitoring; Complete Time: 22:51 cp EC/17 22:55 Rate is 73 beats/min. Rhythm is regular. VA interval is normal. QRS interval is cp prolonged at 102 msec. QT interval is normal. T waves are Inverted in leads II, III, aVF, V3, V4, V5, V6. Interpreted by me. Reviewed by me. Administered Medications: 22:50 Drug: Aspirin Chewable Tablet 324 mg Route: PO; 07/18 00:34 Follow up: Response: No adverse reaction [facility] 07/17 23:28 Drug: Insulin Regular Human 10 units {Co-Signature: ss7 (Stefani Colby RN).} Route: IVP; [facility] Site: left forearm; 07/18 00:34 Follow up: Response: Blood sugar is lowered [facility] 07/17 23:41 Drug: NS 0.9% 1000 ml Route: IV; Rate: 1 bolus; Site: left forearm; [facility] 07/18 00:23 Follow up: IV Status: Completed infusion; IV Intake: 1000ml sf 00:40 Drug: morphine 2 mg Route: IVP; Site: left forearm; [facility] Disposition: 07:39 Co-signature as Attending Physician, Chas Walden MD I agree with the assessment and kdr plan of care. Disposition Summary: 07/18/21 00:24 Hospitalization Ordered Hospitalization Status: Observation cp Provider: Prince mami Limon Location: Telemetry/MedSurg (observation) cp Condition: Stable cp Problem: new cp Symptoms: have improved cp Bed/Room Type: Standard cp Room Assignment: 410(07/18/21 02:35) cg Diagnosis - Chest pain, unspecified cp - Diabetes mellitus due to underlying condition with hyperglycemia cp Forms: - Medication Reconciliation Form cp - SBAR form cp Signatures: Dispatcher [employer] Chas Perkins MD MD [facility] Ori Hickey, TRAVELING PASSENGER AGENT-C TRAVELING PASSENGER AGENT-Cla1 Chavez Saleem PA PA cp Ruth Meza RN RN cg Bridget Giles RN RN sf1 Stefani Colby RN ss7 Corrections: (The following items were deleted from the chart) 02:35 00:24 cp cg
--- NOTE | 2021-07-18 00:24 | ER ---
Nurse's Notes [facility] Name: Primo Leos Age: 45 yrs Sex: Male : 1975 Arrival Date: 07/17/2021 Time: 22:29 Bed 25 Private MD: Diagnosis: Chest pain, unspecified;Diabetes mellitus due to underlying condition with hyperglycemia Presentation: 07/18 03:17 Chief complaint: EMS states: brought in for elevated blood sugar and chest pain. sf1 Coronavirus screen: Vaccine status: Patient reports receiving the 2nd dose of the covid vaccine. Ebola Screen: Patient negative for fever greater than or equal to 101.5 degrees Fahrenheit, and additional compatible Ebola Virus Disease symptoms Patient denies exposure to infectious person. Patient denies travel to an Ebola-affected area in the 21 days before illness onset. Initial Sepsis Screen: Does the patient meet any 2 criteria? No. Patient's initial sepsis screen is negative. Does the patient have a suspected source of infection? No. Patient's initial sepsis screen is negative. Risk Assessment: Do you want to hurt yourself or someone else? Patient reports no desire to harm self or others. Onset of symptoms is unknown. 03:17 Acuity: BRAEDEN 2 sf1 03:17 Method Of Arrival: EMS sf1 Historical: - Allergies: 00:30 No Known Allergies; sf1 - Home Meds: 00:24 metformin Oral [Active]; sf1 - PMHx: 00:24 Diabetes mellitus; sf1 - PSHx: 00:24 None; sf1 - Immunization history:: Flu vaccine is not up to date. - Social history:: Smoking status: Patient reports the use of cigarette tobacco products, smokes two packs cigarettes per day. Patient uses street drugs, cocaine, Patient/guardian denies using street drugs. Screenin:24 Abuse screen: Denies threats or abuse. Nutritional screening: No deficits noted. sf1 Tuberculosis screening: No symptoms or risk factors identified. Fall Risk None identified. Assessment: 03:16 Pain: Complains of pain in right supraclavicular area and right clavicle Pain radiates sf1 to chest Pain began suddenly. Cardiovascular: Reports chest pain. Vital Signs: 00:19 BP 123 / 72; Pulse 77; Resp 18; Temp 98.3; Pulse Ox 93% on R/A; Weight 81.65 kg; Height sf1 6 ft. 1 in. (185.42 cm); 00:19 Body Mass Index 23.75 (81.65 kg, 185.42 cm) sf1 ED Course: 07/17 22:29 Patient arrived in ED. wm 22:32 Chavez Saleem PA is PHCP. cp 22:32 Chas Walden MD is Attending Physician. cp 22:50 UDS Sent. sf1 22:50 Basic Metabolic Panel Sent. sf1 22:50 CBC with Automated Diff Sent. sf1 22:50 Basic Metabolic Panel Sent. sf1 22:50 CBC with Diff Sent. sf1 22:51 Magnesium Sent. sf1 22:51 PT-INR Sent. sf1 22:51 Troponin HS Sent. sf1 23:20 XRAY Chest (1 view) In Process Unspecified. EDMS 07/18 00:03 CT Head Brain wo Cont In Process Unspecified. EDMS 00:18 Bridget Giles RN is Primary Nurse. sf1 00:23 Prince Limon MD is Hospitalizing Provider. cp 00:24 Maintain EMS IV. Dressing intact. Good blood return noted. Site clean \T\ dry. Gauge \T\ sf 1 site: 20 Left forearm. Oxygen administration via nasal cannula \T\ 2L/min. 00:24 Patient has correct armband on for positive identification. traffic monitor specialist on. sf1 03:18 Triage completed. sf1 Administered Medications: 07/17 22:50 Drug: Aspirin Chewable Tablet 324 mg Route: PO; sf1 07/18 00:34 Follow up: Response: No adverse reaction sf1 07/17 23:28 Drug: Insulin Regular Human 10 units {Co-Signature: ss7 (Stefani Colby RN).} Route: IVP; 1 Site: left forearm; 07/18 00:34 Follow up: Response: Blood sugar is lowered sf1 07/17 23:41 Drug: NS 0.9% 1000 ml Route: IV; Rate: 1 bolus; Site: left forearm; sf1 07/18 00:23 Follow up: IV Status: Completed infusion; IV Intake: 1000ml sf1 00:40 Drug: morphine 2 mg Route: IVP; Site: left forearm; 1 Intake: 00:23 IV: 1000ml; Total: 1000ml. 1 Outcome: 00:24 Decision to Hospitalize by Provider. cp 03:42 Patient left the ED. sf1 Signatures: Dispatcher [employer] EDMS Chavez Saleem PA PA cp Marsh, Wendy wm Fillers, Samantha, RN RN sf1 Stefani Colby RN ss7
[2021-07-18] MEDS ORDERED: MORPHINE 2 MG/ML SYR ONE (00:39)
--- NOTE | 2021-07-18 00:55 | P.HP ---
Certification for Inpatient Patient admitted to: Observation With expected LOS: <2 Midnights Patient will require the following post-hospital care: None Practitioner: I am a practitioner with admitting privileges, knowledge of patient current condition, hospital course, and medical plan of care. Services: Services provided to patient in accordance with Admission requirements found in Title 42 Section 412.3 of the Code of Federal Regulations Patient History Date of Service: 07/18/21 Reason for admission: Chest pain History of Present Illness: 45-year-old -[place] male with history of diabetes mellitus type 2 presents emergency department for chest pain and high blood sugar. Patient reports he began having some right-sided chest pain shortly after having an argument with his significant other, pain is to the right anterior chest wall radiating to right shoulder and right arm, described as numbness/pressure-like pain. Patient denies similar pain episodes in the past pain is reproducible with palpation states it does reproduce the same pain he came in for. His labs were significant for initial troponin high-sensitivity of 60.7 glucose of 473 creatinine 1.47 GFR 63 potassium 5.3 with mild hemolysis also positive for cocaine, denies drug use. Given chest pain, elevated troponin ED provider wishes to admit under observation for ACS rule out. - Past Medical/Surgical History -: Diabetes mellitus type 2 -: None Psychosocial/ Personal History: Lives at home with family - Family History Brother -: Diabetes Sister -: Diabetes - Social History Smoking Status: Current every day smoker Counseled patient to stop smoking for: less than 10 minutes Smoking therapy provided: No (Patient declined) Alcohol use: No CD- Drugs: No Caffeine use: Yes Place of Residence: Home Review of Systems 10-point ROS is otherwise unremarkable General: Malaise Cardiovascular: Chest Pain Physical Examination - Physical Exam General: Alert, In no apparent distress, Oriented x3 HEENT: Atraumatic, PERRLA, Mucous membr. moist/pink, EOMI, Sclerae nonicteric Neck: Supple, 2+ carotid pulse no bruit, No LAD, Without JVD or thyroid abnormality Respiratory: Clear to auscultation bilaterally, Normal air movement Cardiovascular: Regular rate/rhythm, Normal S1 S2 Gastrointestinal: Normal bowel sounds, No tenderness Musculoskeletal: No tenderness Integumentary: No rashes Neurological: Normal gait, Normal speech, Normal strength at 5/5 x4 extr, Normal tone, Normal affect Lymphatics: No axilla or inguinal lymphadenopathy - Studies Laboratory Data (last 24 hrs) 07/17/21 22:43: PT 10.0, INR 0.91 07/17/21 22:43: WBC 5.70, Hgb 14.1, Hct 43.2, Plt Count 341 07/17/21 22:43: Sodium 137, Potassium 5.3 H, BUN 24 H, Creatinine 1.47 H, Glu cose 473 H*, Magnesium 2.0 Assessment and Plan - Plan Assessment: Chest pain rule out ACS Diabetes mellitus type 2 vim-eprxuvl-zgxtzuvkz with hyperglycemia Cocaine abuse Tobacco abuse Plan: Chest pain rule out ACS: Monitor on telemetry, trend troponins, cardiology consulted. Aspirin, statin, beta-isiah therapy. As needed morphine. Diabetes mellitus type 2 uoa-rwuvqcv-ucpsuhgxd with hyperglycemia: ACH is Accu- Chek, moderate sliding scale insulin, A1c with morning labs. Patient reports he was started on Metformin recently does not take insulin at this time. Cocaine abuse: Patient denies drug use urine drug screen positive counseled on dangers of cocaine related to cardiovascular disease. Tobacco abuse: Counseled on need for tobacco cessation, patient verbalizes he is trying to quit does not want NicoDerm patch. DVT PPX: Lovenox Code status: Full Discharge Plan: Home Plan to discharge in: 24 Hours - Advance Directives Does patient have a Living Will: No Does patient have a Durable POA for Healthcare: No - Code Status/Comfort Care Code Status Assessed: Yes (Full) Critical Care: No Time Spent Managing Pts Care (In Minutes): 55
[2021-07-18 01:19] VITALS: BMI 24.4
[2021-07-18] MEDS ORDERED: ONDANSETRON 4 MG/2 ML VIAL IV PRN (01:19)
[2021-07-18] MEDS ORDERED: MORPHINE 2 MG/ML SYR IV PRN (01:19)
[2021-07-18] MEDS: NA CHLORIDE 0.9% 1,000 ML IV SCH ×2 (01:19→11:47)
[2021-07-18 03:09] VITALS: O2SAT 97
[2021-07-18] MEDS ORDERED: METOPROLOL TAR 25 MG TAB PO SCH (06:00)
[2021-07-18 06:38] LABS: ALT/SGPT 33 U/L (12-78); AST/SGOT 22 U/L (15-37); Albumin 2.9 g/dL (3.4-5.0); Alkaline Phosphatase 121 U/L (45-117); BUN Blood Urea Nitrogen 19 mg/dL (7-18); Bicarbonate 27 mmol/L (21-32); Bilirubin Total 0.3 mg/dL (0.2-1.0); Glucose Level 277 mg/dL (74-106); HDL Cholesterol 35 mg/dL (40-60); LDL Cholesterol, Calculated 89 (<130); Potassium 3.8 mmol/L (3.5-5.1); Protein, Total 5.7 g/dL (6.4-8.2); Sodium Level 139 mmol/L (136-145)
[2021-07-18] MEDS ORDERED: ASPIRIN EC 81 MG TAB PO SCH (09:00)
[2021-07-18] MEDS ORDERED: INFLUENZA VACCINE (for 6+ mo) 0.5 ML DOSE IMVAC ONE (09:00)
[2021-07-18] MEDS ORDERED: ENOXAPARIN 40 MG/0.4 ML SQ SCH (09:00)
[2021-07-18] MEDS: INSULIN -REGULAR HUMAN 50 UNIT/0.5 ML ML SQ SCH ×2 (09:11→12:33)
[2021-07-18] MEDS ORDERED: GLUCAGON 1 MG/VIAL IM PRN ×2 (10:31→10:32)
[2021-07-18] MEDS ORDERED: D50W 25 GM/50 ML SYRINGE IV PRN ×2 (10:31→10:32)
[2021-07-18] MEDS ORDERED: D10W 125 ML IV PRN (10:52)
--- NOTE | 2021-07-18 10:55 | RAD REPORT ---
EXAM DESCRIPTION: CT - Head Brain Wo Cont - 07/18/2021 6:10 am CLINICAL HISTORY: 45 years, Male, HEADACHE COMPARISON: None. FINDINGS: Multiple transaxial tomograms of the brain were obtained from the base of the skull to the vertex without contrast. 2-D multiplanar reformats and the coronal and sagittal plane were performed and reviewed. This exam was performed according to our departmental dose-optimization protocol, which includes auto mated exposure control, adjustment of the mA and/or kV according to patient size and/or use of iterat jacquie reconstruction technique. Brain parenchyma as well as the ma and white matter differentiation demonstrate to be unremarkable. There is no midline shift and/or mass effect. There is no evidence for acute hemorrhage. No focal ar eas of hypodensities. Lateral ventricles and cisterns displace normal appearance. No intra or ext ra axial fluid collections were seen. The calvarium is intact with no evidence for fracture. The visu alized portions of the paranasal sinuses minimal mucosal thickening ethmoid sinus. The rest of the pa ranasal sinuses and orbits demonstrate to be clear. IMPRESSION: NO ACUTE INTRACRANIAL HEMORRHAGE. UNREMARKABLE CT SCAN OF THE HEAD WITHOUT CONTRAST. Electronically signed by: Stephen Storm MD 07/18/2021 12:35 AM CDT Due to temporary technical issues with the PACS/Fluency reporting system, reports are being signed by the in house radiologist without review as a courtesy to ensure prompt reporting. The interpreting r adiologist is fully responsible for the content of the report.
[2021-07-18] MEDS ORDERED: NPH (HUMAN) 100 UNITS/ML INSULIN SQ SCH ×2 (11:00→17:00)
--- NOTE | 2021-07-18 11:26 | RAD REPORT ---
EXAM DESCRIPTION: RAD - Chest Single View - 07/17/2021 11:21 pm CLINICAL HISTORY: CHEST PAIN COMPARISON: None. TECHNIQUE: AP Chest. FINDINGS: Normal cardiac size. Pulmonary vasculature appears normal. Normal cardiomediastinal contou rs. Lungs are clear. Pleural spaces are clear. Unremarkable soft tissues and bones. IMPRESSION: 1. No acute chest disease. Electronically signed by: Maryan Jones DO 07/17/2021 11:57 PM CDT Due to temporary technical issues with the PACS/Fluency reporting system, reports are being signed by the in house radiologist without review as a courtesy to ensure prompt reporting. The interpreting r adiologist is fully responsible for the content of the report.
[2021-07-18 11:40] LABS: BUN Blood Urea Nitrogen 17 mg/dL (7-18); Bicarbonate 28 mmol/L (21-32); Glucose Level 376 mg/dL (74-106); Potassium 4.4 mmol/L (3.5-5.1); Sodium Level 138 mmol/L (136-145)
[2021-07-18 13:56] VITALS: BP 109/59; TEMP 98.2
[2021-07-18] MEDS ORDERED: ATORVASTATIN 40 MG TAB PO SCH (21:00)
--- NOTE | 2021-07-18 23:04 | CON ---
Date of Consultation: 07/18/2021 Reason For Consultation: Chest pain and borderline elevation of troponin. History Of Present Illness: A 45-year-old male with history of diabetes, presented to the emergency room due to high blood sugars. Said he had argument with his and since then had a chest pain in the right side across to the right arm and to the left side of chest. It is pressure like. He has been chest pain free since admission. Past Medical History: Diabetes. Medications: Refer reconciliation sheet for detailed list. Allergies: NO KNOWN DRUG ALLERGIES. Family History: No mature coronary artery disease or cancer. Social History: He smokes a pack per day. Does not drink or use any drugs. Review of Systems: All systems reviewed are negative. Physical Examination: Vital Signs: Reviewed. Temperature is 98.2, pulse 66, breathing at 18, blood pressure is 109/59, sa turating 96% on room air. General: Pleasant young male, in no apparent distress. Head and Neck: Pupils are equal, reactive to light. Intact eye movements. No JVD. No cyanosis. N zeb is supple. Thyroid is not enlarged. Lungs: Clear to auscultation bilaterally. No rhonchi, rales, or crackles. No accessory muscle use. Heart: Regular rate and rhythm. No extra sounds. Abdomen: Soft, nontender. Bowel sounds positive. No organomegaly. No masses or hernia. No rigidi ty or rebound. Extremities: No clubbing, cyanosis. Intact pulses. Skin: No rashes. Neuro: Alert, awake, and oriented x3. No acute focal deficits appreciated. Investigations: Troponins 56 and 64. EKG without acute specific abnormalities. Assessment And Recommendations: Chest pain with borderline troponin. Patient has been chest pain fr ee. Monitor for next 24 hours. Repeat troponin in the morning. If it continues to be negative, pat ient may be released and follow up as an outpatient for exercise stress test and an echo. Meanwhile, start on aspirin. Glycemic and blood pressure control were recommended. SR/MODL Voice ID: [id number] Report ID: [id number]
--- NOTE | 2021-07-19 06:12 | P.DS ---
Admission Date: 07/18/21 Discharge Date: 07/19/21 Disposition: AMA-LEFT AGAINST MEDICAL ADVIC Discharge Condition: GOOD Reason for Admission: Chest pain Hospital Course: Patient was admitted overnight after he presented with chest pain. He had elevated troponin as well. His urine toxicology was positive for cocaine. He also has uncontrolled diabetes mellitus A1c of 13.1. He was severely hyperglycemic with blood glucose in the 400s. He has never been on insulin before. I have started him on insulin. However, he decided to leave AMA. He left on 07/18/2021. Vital Signs/Physical Exam: Temp Pulse Resp BP Pulse Ox 98.2 F 66 18 109/59 L 96 07/18/21 16:07 07/18/21 16:07 07/18/21 16:07 07/18/21 16:07 07/18/21 16:07 Laboratory Data at Discharge: WBC 5.70 K/uL (4.3-10.9) 07/17/21 22:43 Hgb 14.1 g/dL (13.6-17.9) 07/17/21 22:43 Hct 43.2 % (39.6-49.0) 07/17/21 22:43 Plt Count 341 K/uL (152-406) 07/17/21 22:43 PT 10.0 SECONDS (9.5-12.5) 07/17/21 22:43 INR 0.91 07/17/21 22:43 Sodium 138 mmol/L (136-145) 07/18/21 11:03 Potassium 4.4 mmol/L (3.5-5.1) 07/18/21 11:03 BUN 17 mg/dL (7-18) 07/18/21 11:03 Creatinine 1.00 mg/dL (0.55-1.3) 07/18/21 11:03 Glucose 376 mg/dL (74-106) H 07/18/21 11:03 Magnesium 2.0 mg/dL (1.8-2.4) 07/17/21 22:43 Total Bilirubin 0.3 mg/dL (0.2-1.0) 07/18/21 04:06 AST 22 U/L (15-37) 07/18/21 04:06 ALT 33 U/L (12-78) 07/18/21 04:06 Alkaline Phosphatase 121 U/L (45-117) H 07/18/21 04:06 Triglycerides 58 mg/dL (<150) 07/18/21 04:06 Cholesterol 136 mg/dL (<200) 07/18/21 04:06 HDL Cholesterol 35 mg/dL (40-60) L 07/18/21 04:06 Cholesterol/HDL Ratio 3.89 07/18/21 04:06 Home Medications: Metformin ER [Glucophage ER*] 500 mg PO TID 07/18/21 Followup: Unknown,U [Primary Care Provider] -
[2021-07-19] MEDS ORDERED: NPH (HUMAN) 100 UNITS/ML INSULIN SQ SCH (10:31)
--- NOTE | 2021-07-21 08:28 | EKG ---
Test Date: 2021-07-17 Test Time: 22:49:30 Rn First Assistant: JUAN MEASUREMENT RESULTS: Intervals: Rate: 73 [place]: 162 QRSD: 102 QT: 366 QTc: 403 [place]: P: 76 [place]: 162 QRS: 88 T: -54 INTERPRETIVE STATEMENTS: Normal sinus rhythm T wave abnormality, consider inferior ischemia T wave abnormality, consider anterolateral ischemia Abnormal ECG No previous ECG available for comparison Electronically Signed On 07-21-21 08:22:54 CDT by Cal White
== END 2021-07-18 16:55 | disposition left against medical advice (07) | DRG 313 ==
LOC: ER 22:28 → ERHOLD 07-18 00:47 → 4TH 07-18 03:21 → OBSVTOIN 07-18 14:00
PROVIDERS: ADMIT Internal Medicine; ATTEND Internal Medicine
DX: R07.9 Chest pain, unspecified (principal); E11.65 Type 2 diabetes mellitus with hyperglycemia; R77.8 Other specified abnormalities of plasma proteins; F14.10 Cocaine abuse, uncomplicated; F17.210 Nicotine dependence, cigarettes, uncomplicated; Z53.29 Procedure and treatment not carried out because of patient's decision for other reasons; Z20.822 Contact with and (suspected) exposure to COVID-19
CPT/HCPCS: 36415; 70450; 71045; 80048; 80053; 80061; 80307; 81003; 82947; 83036; 83735; 84484; 85025; 85610; 93005; 96361; 96374; 96375; 99285; G0378; J1650; J1815; J2270; J7030; U0003

== ENCOUNTER 2021-08-23 10:18 | Emergency (ER) | payer SELFPAY ==
--- OUTSIDE RECORDS SUMMARY | 2021-08-23 10:20 | XMS REPORT | Continuity of Care Document ---
:1975 Author Organization [facility] t Address [address] [place] [address] Care Team Providers Name Role Phone PCP, DOES NOT HAVE A Primary Care Physician Unavailable Miss Doreen Attending Clinician Unavailable EBRAHIM Attending Clinician Unavailable EBRAHIM Admitting Clinician Unavailable Payers Payer Name Policy Type Policy Number Effective Date Expiration Date S ource Problems This patient has no known problems. Allergies, Adverse Reactions, Alerts Allergy Allergy Status Severity Reaction(s) Onset Inactive Treating Comm ents Source Name Type Date Date Clinician NO KNOWN Drug [facility] This patient has no known medications. Procedures This patient has no known procedures. Encounters Start End Encounter Admission Attending Care Care Encounter Source Date/Time Date/Time Type Type Clinicians Facility Department ID 2021-07-08 [id number] [place] 08:45:23 August [address] 2021-05-03 2021-05-03 Emergency X FAUZIA MTDIANA ERT [id number] [employer] 11:58:00 14:10:[address] [facility] Results This patient has no known results.
--- NOTE | 2021-08-23 10:34 | EDPHYS ---
Physician Documentation [facility] Name: Primo Leos Age: 45 yrs Sex: Male : 1975 Arrival Date: 08/23/2021 Time: 10: Bed 5 Private MD: ED Physician Alena Ro HPI: 08/23 10:31 This 45 yrs old Black Male presents to ER via Unassigned with complaints of High Blood ma2 sugar - 367. 10:31 45-year-old male, was discussed with the last night so he did not take his insulin, he ma2 has racing this morning already seen here for checkup. Patient is not at the facility at this time. Patient states his blood sugar is high because he did not take his insulin. He wants to go home to take his insulin. Patient states he does not want any testing or any emergency medicine care at this time and just want to be released so he can go home and get his insulin. He states he had similar states he had no symptoms at this time however his blood sugars are. Historical: - Allergies: 10:32 No Known Allergies; jg9 - Home Meds: 10:32 Metformin Oral [Active]; jg9 - PMHx: 10:32 diabetes mellitus; jg9 - Immunization history:: Adult Immunizations not up to date. - Social history:: Smoking status: Patient reports the use of cigarette tobacco products, smokes one-half pack cigarettes per day. - Family history:: not pertinent. ROS: 10:31 Constitutional: Negative for fever, chills, and weight loss. ma2 10:31 All other systems are negative. Exam: 10:31 Constitutional: This is a well developed, well nourished patient who is awake, alert, ma2 and in no acute distress. Head/Face: Normocephalic, atraumatic. Eyes: Pupils equal round and reactive to light, extra-ocular motions intact. Lids and lashes normal. Conjunctiva and sclera are non-icteric and not injected. Cornea within normal limits. Periorbital areas with no swelling, redness, or edema. ENT: Nares patent. No nasal discharge, no septal abnormalities noted. Tympanic membranes are normal and external auditory canals are clear. Oropharynx with no redness, swelling, or masses, exudates, or evidence of obstruction, uvula midline. Mucous membranes moist. Neck: Trachea midline, no thyromegaly or masses palpated, and no cervical lymphadenopathy. Supple, full range of motion without nuchal rigidity, or vertebral point tenderness. No Meningismus. Chest/axilla: Normal chest wall appearance and motion. Nontender with no deformity. No lesions are appreciated. Cardiovascular: Regular rate and rhythm with a normal S1 and S2. No gallops, murmurs, or rubs. Normal PMI, no JVD. No pulse deficits. Respiratory: Lungs have equal breath sounds bilaterally, clear to auscultation and percussion. No rales, rhonchi or wheezes noted. No increased work of breathing, no retractions or nasal flaring. Abdomen/GI: Soft, non-tender, with normal bowel sounds. No distension or tympany. No guarding or rebound. No evidence of tenderness throughout. Back: No spinal tenderness. No costovertebral tenderness. Full range of motion. Skin: Warm, dry with normal turgor. Normal color with no rashes, no lesions, and no evidence of cellulitis. MS/ Extremity: Pulses equal, no cyanosis. Neurovascular intact. Full, normal range of motion. Neuro: Awake and alert, GCS 15, oriented to person, place, time, and situation. Cranial nerves II-XII grossly intact. Motor strength 5/5 in all extremities. Sensory grossly intact. Cerebellar exam normal. Normal gait. Vital Signs: 10:15 BP 123 / 90; Pulse 80; Resp 17 S; Temp 98.0(O); Pulse Ox 95% ; Weight 95.25 kg (R); jg9 Height 6 ft. 1 in. (185.42 cm) (R); Pain 0/10; 10:15 Body Mass Index 27.71 (95.25 kg, 185.42 cm) jg9 MDM: 10:29 Patient medically screened. pm1 10:31 Differential diagnosis: Her blood sugar. Data reviewed: vital signs, nurses notes. ma2 Counseling: I had a detailed discussion with the patient and/or guardian regarding: the historical points, exam findings, and any diagnostic results supporting the discharge/admit diagnosis, the presence of at least one elevated blood pressure reading (>120/80) during this emergency department visit, the need for outpatient follow up. Response to treatment: the patient's symptoms have markedly improved after treatment. 10:34 Admission orders: after a detailed discussion of the patient's condition and case, the ma2 admit orders are written by me. ED course: As stated above patient refused any testing or work-up in the ER. 08/23 10:37 Order name: Glucose, Ancillary Testing EDMS Administered Medications: No medications were administered Point of Care Testing: Blood Glucose: 10:31 Blood Glucose: 377 mg/dL; jg9 Ranges: Critical Glucose Levels:Adult <50 mg/dl or >400 mg/dl <40 mg/dl or >180 mg/dl Disposition Summary: 08/23/21 10:33 Discharge Ordered Location: Home ma2 Condition: Stable ma2 Diagnosis - Other specified diabetes mellitus with hyperglycemia ma2 Followup: ma2 - With: Private Physician - When: Tomorrow - Reason: If symptoms return, Continuance of care Discharge Instructions: - Discharge Summary Sheet ma2 - Hyperglycemia ma2 Forms: - Medication Reconciliation Form ma2 - Thank You Letter ma2 - Antibiotic Education ma2 - Prescription Opioid Use ma2 Signatures: Ronak Gaspar, [employer] pm1 Alena Ro MD MD ma2 Sejal Mccabe, RN RN jg9
--- NOTE | 2021-08-23 10:34 | ER ---
Nurse's Notes [facility] Name: Primo Leos Age: 45 yrs Sex: Male : 1975 Arrival Date: 08/23/2021 Time: 10:25 Bed 5 Private MD: Diagnosis: Other specified diabetes mellitus with hyperglycemia Presentation: 08/23 10:15 Chief complaint: EMS states: Patient was in the process of being released/transferred jg9 to [place] for outstanding warrants, he was in [facility] care home. He reported that he needed his diabetes medication when he was arrested but the staff was not doing anything about it, he reports he felt his sugar was up sometime this morning and he told the staff again about needing his diabetes medication at which time they advised him that he would have to wait because they were busy. Patient went on to report that he fell asleep and 2 hr later when he woke up they still did nothing about his request for his medication which was at home. Coronavirus screen: Vaccine status: Patient reports being unvaccinated. Ebola Screen: Patient negative for fever greater than or equal to 101.5 degrees Fahrenheit, and additional compatible Ebola Virus Disease symptoms Patient denies exposure to infectious person. Patient denies travel to an Ebola-affected area in the 21 days before illness onset. Initial Sepsis Screen: Does the patient meet any 2 criteria? No. Patient's initial sepsis screen is negative. Does the patient have a suspected source of infection? No. Patient's initial sepsis screen is negative. Risk Assessment: Do you want to hurt yourself or someone else? Patient reports no desire to harm self or others. Onset of symptoms was August 23, 2021. 10:15 Method Of Arrival: EMS: [facility] 9 10:15 Acuity: BRAEDEN 3 jg9 Triage Assessment: 10:15 General: Appears in no apparent distress. Behavior is agitated. Pain: Denies pain. jg9 Historical: - Allergies: 10:32 No Known Allergies; jg9 - Home Meds: 10:32 Metformin Oral [Active]; jg9 - PMHx: 10:32 diabetes mellitus; jg9 - Immunization history:: Adult Immunizations not up to date. - Social history:: Smoking status: Patient reports the use of cigarette tobacco products, smokes one-half pack cigarettes per day. - Family history:: not pertinent. Screenin:32 Abuse screen: Denies threats or abuse. Denies injuries from another. Nutritional jg9 screening: No deficits noted. Tuberculosis screening: No symptoms or risk factors identified. Fall Risk None identified. Assessment: 10:37 Reassessment: Patient states that he feels ok he wants to go home so he can take his jg9 medication, patient does not want any treatment at this time-provider at bedside. Vital Signs: 10:15 BP 123 / 90; Pulse 80; Resp 17 S; Temp 98.0(O); Pulse Ox 95% ; Weight 95.25 kg (R); jg9 Height 6 ft. 1 in. (185.42 cm) (R); Pain 0/10; 10:15 Body Mass Index 27.71 (95.25 kg, 185.42 cm) jg9 ED Course: 10:15 No provider procedures requiring assistance completed. Maintain EMS IV. Dressing jg9 intact. Good blood return noted. Site clean \T\ dry. Gauge \T\ site: 20 left ac. IV discontinued. 10:25 Patient arrived in ED. jg9 10:26 Sejal Mccabe, RN is Primary Nurse. jg9 10:29 Ronak Gaspar NP is PHCP. pm1 10:29 Alena Ro MD is Attending Physician. pm1 10:31 Triage completed. jg9 10:32 Arm band placed on right wrist. jg9 10:32 Patient has correct armband on for positive identification. Bed in low position. Call jg9 light in reach. Administered Medications: No medications were administered Point of Care Testing: Blood Glucose: 10:31 Blood Glucose: 377 mg/dL; jg9 Ranges: Outcome: 10:33 Discharge ordered by . ma2 10:39 Discharged to home ambulatory. jg9 10:39 Condition: stable 10:39 Discharge instructions given to patient, Instructed on discharge instructions, follow up and referral plans. Demonstrated understanding of instructions, follow-up care. 10:39 Patient left the ED. jg9 Signatures: Ronak Gaspar NP POLITICAL CARTOONIST pm1 Alena Ro MD MD ma2 Gilmore, Jennifer, RN RN jg9
== END 2021-08-23 10:39 | disposition home or self-care (01) ==
LOC: ER 10:18
DX: E13.65 Other specified diabetes mellitus with hyperglycemia (principal); F17.210 Nicotine dependence, cigarettes, uncomplicated
CPT/HCPCS: 82947; 99283

== ENCOUNTER 2021-10-10 17:47 | Emergency (ER) | payer SELFPAY ==
--- OUTSIDE RECORDS SUMMARY | 2021-10-10 17:50 | XMS REPORT | Continuity of Care Document ---
:1975 Author Organization [facility] t Address [address] [place] [address] Care Team Providers Name Role Phone PCP, DOES NOT HAVE A Primary Care Physician Unavailable Doreen Attending Clinician Unavailable EBRAHIM Attending Clinician Unavailable EBRAHIM Admitting Clinician Unavailable Payers Payer Name Policy Type Policy Number Effective Date Expiration Date S ource Problems This patient has no known problems. Allergies, Adverse Reactions, Alerts Allergy Allergy Status Severity Reaction(s) Onset Inactive Treating Comm ents Source Name Type Date Date Clinician NO KNOWN Drug Active [facility] ALLERGIE Class it of S [facility] Medications This patient has no known medications. Procedures This patient has no known procedures. Encounters Start End Encounter Admission Attending Care Care Encounter Source Date/Time Date/Time Type Type Clinicians Facility Department ID 2021-07-08 Outpatient Doreen [facility] [id number] [place] 08:45:23 August [address] 2021-05-03 2021-05-03 Emergency X MALIKA CAGE [id number] 11:58:00 14:10:00 GARCÍA [facility] Results This patient has no known results.
[2021-10-10] MEDS ORDERED: NA CHLORIDE 0.9% 2,000 ML ONE (18:08)
[2021-10-10] MEDS ORDERED: NA CHLORIDE 0.9% 500 ML ONE ×2 (18:08→21:39)
[2021-10-10] MEDS ORDERED: NA CHLORIDE 0.9% 100 ML ONE (18:08)
[2021-10-10] MEDS ORDERED: CEFTRIAXONE 1000 MG/VIAL ONE ×2 (18:08→18:16)
[2021-10-10] MEDS ORDERED: ACETAMINOPHEN 500 MG TAB ONE ×2 (18:08→18:16)
[2021-10-10 18:15] LABS: Absolute Lymphocytes (CBC) 0.4 K/uL (0.7-4.9); Hematocrit 41.8 % (39.6-49.0); Lymphocytes % 4.1 % (15.3-44.8); MPV 7.8 fL (7.6-11.3); RBC Red Blood Cell Count 5.01 M/uL (4.33-5.43)
[2021-10-10] MEDS ORDERED: INSULIN -REGULAR HUMAN 50 UNIT/0.5 ML ML ONE (18:17)
[2021-10-10] MEDS ORDERED: NA CHLORIDE 0.9% 1,000 ML ONE (18:17)
[2021-10-10 18:22] LABS: Protime INR 1.04
[2021-10-10 18:26] LABS: Arterial Blood Carboxyhemoglob 1.7 % (0-1.5); Blood Gas Oxyhemoglobin 94.1 % (94-97); Blood O2 Saturation 97.1 % (92-98.5)
[2021-10-10 18:30] LABS: Albumin 3.2 g/dL (3.4-5.0); Potassium 3.9 mmol/L (3.5-5.1)
[2021-10-10 18:34] LABS: Bilirubin Total 0.6 mg/dL (0.2-1.0); Protein, Total 6.1 g/dL (6.4-8.2)
--- NOTE | 2021-10-10 19:00 | RAD REPORT ---
EXAM DESCRIPTION: RAD - Chest Single View - 10/10/2021 6:15 pm CLINICAL HISTORY: FEVER COMPARISON: Portable 07/17/2021 TECHNIQUE: AP portable chest image was obtained 10/10/2021 6:15 pm . FINDINGS: Lungs are clear. Heart and vasculature are normal. No measurable pleural effusion and no p neumothorax. No acute bony abnormality seen. No acute aortic findings suspected. IMPRESSION: No acute cardiopulmonary process. No significant change from comparison study.
[2021-10-10 19:05] LABS: Urine Blood Negative (Negative); Urine Glucose 3+ (Negative); Urine Protein Negative (Negative); Urine pH 8.5 (5.0-7.0)
[2021-10-10 19:19] LABS: Urine Bacteria <20 /HPF (NONE SEEN); Urine RBC <5 /HPF (NONE SEEN)
--- NOTE | 2021-10-10 19:40 | RAD REPORT ---
EXAM DESCRIPTION: CT - Angio Aorta For Dissection - 10/10/2021 7:23 pm CLINICAL HISTORY: chest pain, abdominal pain, back pain COMPARISON: Portable chest 10/10/2021 TECHNIQUE: Dynamically enhanced 3 mm thick images of the chest, abdomen, and upper pelvis were obtai shirley during administration of approximately 150mL Isovue 370 IV contrast. Sagittal and coronal reconst ruction images were generated using MIP and reviewed. Exam utilizes a protocol to evaluate entire cou rse of the aorta. All CT scans are performed using dose optimization technique as appropriate and may include automated exposure control or mA/KV adjustment according to patient size. FINDINGS: Aorta is normal in diameter with no dissection or other acute aortic findings. Reconstruct ion images show no significant findings. Pulmonary arteries are normal as well. No cardiomegaly, pericardial thickening or pericardial effusio n. Lung base atelectasis present posterior gutters. No suspicious lung parenchymal finding. No pleural t hickening, pleural effusion or pneumothorax. No abnormal mediastinal or hilar mass or lymphadenopathy seen. No chest wall mass or abnormal axillar y lymphadenopathy. Celiac, SMA and renal arteries show no suspicious findings. Patient has 2 right renal arteries is a n ormal variant. Solid abdominal viscera and bowel show no acute findings. Large stool volume fills the colon. No mass or abnormal lymphadenopathy. No free air, free fluid or inflammatory stranding. No u rinary bladder abnormality. No acute bone findings. Patient has L5 pars interarticularis defects. Only minimal anterior subluxati on of L5 noted. IMPRESSION: Negative CT scan of the aorta. No other acute findings on chest, abdomen and upper pelvis examination.
[2021-10-10] MEDS ORDERED: MORPHINE 4 MG/ML SYR ONE (19:42)
[2021-10-10] MEDS ORDERED: ONDANSETRON 4 MG/2 ML VIAL ONE (19:42)
--- NOTE | 2021-10-10 19:54 | ER ---
Nurse's Notes [facility] Name: Primo Leos Age: 45 yrs Sex: Male : 1975 Arrival Date: 10/10/2021 Time: 17:49 Bed 7 Private MD: Diagnosis: SARS-associated coronavirus as the cause of diseases classified elsewhere;Fever presenting with conditions classified elsewhere;Chest pain, unspecified;Low back pain;Diabetes mellitus due to underlying condition with hyperglycemia Presentation: 10/10 17:50 Chief complaint: EMS states: they were called to the patients home for back pain, chest ap3 pain, and leg pain. patient states his low back pain is is main concern, however his FSBS on scene was 463. Patient states he doesn't ever check his sugar, but will dose himself insulin based on how he feels. Coronavirus screen: Client presents with at least one sign or symptom that may indicate coronavirus-19. Ebola Screen: No symptoms or risks identified at this time. 17:50 Method Of Arrival: EMS: [facility] ap3 17:56 Initial Sepsis Screen: Does the patient meet any 2 criteria? RR > 20 per min. Temp ap3 <36.0*C (96.8*F)) or > 38.3*C (100.9*F). HR > 90 bpm. Yes Does the patient have a suspected source of infection? Yes: Productive cough/pneumonia. Risk Assessment: Do you want to hurt yourself or someone else? Patient reports no desire to harm self or others. Onset of symptoms was October 10, 2021. 17:56 Acuity: BRAEDEN 2 ap3 17:58 Care prior to arrival: Medication(s) given: LR's 600ml IV initiated. 20 GA, in the left ap3 antecubital area. Triage Assessment: 17:56 General: Appears distressed, uncomfortable, Behavior is anxious. Pain: Complains of ap3 pain in back, chest, right leg and left leg. Neuro: Level of Consciousness is awake, alert, obeys commands, Oriented to person, place, time, situation, Appropriate for age Speech is normal. Cardiovascular: Reports chest pain, Patient's skin is warm and dry. Respiratory: Airway is patent Respiratory effort is even, unlabored, Respiratory pattern is tachypnea. Historical: - Allergies: 17:54 No Known Allergies; ap3 - PMHx: 17:54 diabetes mellitus; ap3 - Immunization history:: Client reports having NOT received the Covid vaccine. - Social history:: Smoking status: Patient reports the use of cigarette tobacco products, smokes one pack cigarettes per day. Screenin:57 Abuse screen: Denies threats or abuse. Nutritional screening: No deficits noted. ap3 Tuberculosis screening: No symptoms or risk factors identified. 18:50 Fall Risk IV access (20 points). barros Assessment: 18:50 General: Appears unkempt, Behavior is agitated, restless. Pain: Complains of pain in barros back and chest. Neuro: Level of Consciousness is awake, alert, obeys commands. Cardiovascular: Reports chest pain. Musculoskeletal: Reports pain in back Pain is 10 out of 10 on a pain scale. 19:35 General: Appears in no apparent distress. Behavior is cooperative. Neuro: No deficits sm5 noted. Level of Consciousness is awake, alert, obeys commands, Oriented to person, place, time, situation. Cardiovascular: Capillary refill < 3 seconds Patient's skin is warm and dry. Rhythm is sinus tachycardia. Respiratory: No deficits noted. Airway is patent Trachea midline Respiratory effort is even, unlabored. 21:43 Reassessment: No changes from previously documented assessment. Patient and/or family sm5 updated on plan of care and expected duration. Pain level reassessed. Vital Signs: 17:50 BP 115 / 92; Pulse 101; Resp 26; Temp 101.5; Pulse Ox 99% ; ap3 17:58 Weight 85 kg; ap3 18:29 BP 134 / 70; Pulse 109; Resp 19; Pulse Ox 100% on R/A; ap3 20:30 BP 97 / 59; Pulse 103; Resp 18; Pulse Ox 93% on R/A; sm5 21:06 Pulse Ox 97% on R/A; la1 21:41 BP 108 / 59; Pulse 99; Resp 18; Pulse Ox 100% on R/A; sm5 22:00 Temp 101.9(O); sm5 22:25 BP 112 / 55; Pulse 99; Resp 17; Pulse Ox 98% on R/A; kd3 21:06 with ambulation la1 ED Course: 17:49 Patient arrived in ED. ap3 17:53 Jarett Weber PA is PHCP. jmm 17:53 Chavez Perez MD is Attending Physician. jmm 17:57 Triage completed. ap3 17:57 Arm band placed on right wrist. ap3 17:57 Patient has correct armband on for positive identification. Bed in low position. Call ap3 light in reach. Side rails up X2. nurse monitoring on. Pulse ox on. NIBP on. Door closed. Noise minimized. 18:13 Influenza Screen (a \\T\\ B) Sent. ap3 18:13 SARS-COV-2 RT PCR (Document "Date of Onset" if Symptomatic) Sent. ap3 18:17 Chest Single View XRAY In Process Unspecified. EDMS 18:50 No provider procedures requiring assistance completed. Inserted saline lock: 20 gauge barros in right antecubital area, using aseptic technique. Maintain EMS IV. Gauge \\T\\ site: lac 20g. 19:06 Urine Culture Sent. barros 19:06 Urine Microscopic Only Sent. barros 19:11 Antoinette Gardner, RN is Primary Nurse. kd3 19:25 CT Aorta for Dissection In Process Unspecified. EDMS 19:31 CT completed. Pt tolerated procedure poorly. nj 19:53 Chandra Mcgovern MD is Hospitalizing Provider. jmm 22:26 IV discontinued, intact, bleeding controlled, No redness/swelling at site. Pressure kd3 dressing applied. Administered Medications: 18:12 Drug: Rocephin (cefTRIAXone) 1 grams Route: IV; Rate: calculated rate; Site: right ap3 antecubital; 18:27 Follow up: IV Status: Completed infusion; IV Intake: 100ml ap3 18:13 Drug: Acetaminophen 1000 mg Route: PO; ap3 18:27 Follow up: Response: No adverse reaction ap3 18:13 Drug: NS 0.9% (30 ml/kg) 30 ml/kg Route: IV; Rate: bolus; Site: right antecubital; ap3 22:27 Follow up: Response: No adverse reaction; IV Status: Completed infusion kd3 18:28 Drug: Insulin Regular Human 10 units {Co-Signature: papo (Zainab Smith RN).} Route: ap3 IVP; Site: right antecubital; 18:53 Follow up: Response: No adverse reaction barros 19:39 Drug: morphine 4 mg Route: IVP; Infused Over: 4 mins; Site: left forearm; sm5 22:08 Follow up: Response: Pain is decreased sm5 22:26 Follow up: Response: No adverse reaction kd3 19:39 Drug: Zofran (Ondansetron) 4 mg Route: IVP; Site: left forearm; sm5 22:08 Follow up: Response: No adverse reaction sm5 22:26 Follow up: Response: No adverse reaction kd3 22:12 Drug: Ibuprofen 800 mg Route: PO; kd3 22:26 Follow up: Response: No adverse reaction kd3 Medication: 17:57 VIS not applicable for this client. ap3 Intake: 18:27 IV: 100ml; Total: 100ml. ap3 Outcome: 19:54 Decision to Hospitalize by Provider. m 21:25 Discharge ordered by . la1 22:25 Discharged to home ambulatory. kd3 22:25 Condition: stable 22:25 Condition: stable 22:25 Discharge instructions given to patient, Instructed on discharge instructions, follow up and referral plans. Demonstrated understanding of instructions, follow-up care. 22:26 Patient left the ED. kd3 Signatures: Dispatcher [employer] EDMS Jarett Weber PA PA jmm Attema, Lee, PLASMA PROCESSING TECHNICIAN-C PLASMA PROCESSING TECHNICIAN-Cla1 Meek Small Amanda RN ROMA [email or web address] Antoinette Gardner RN ROMA kd3 Natasha Medina RN ROMA mcginnis Au-StageZainab borden RN RN ha Heather Au-Stagemichi barros
--- NOTE | 2021-10-10 19:54 | EDPHYS ---
Physician Documentation [facility] Name: Primo Leos Age: 45 yrs Sex: Male : 1975 Arrival Date: 10/10/2021 Time: 17:49 Bed 7 Private MD: ASHOK Physician Chavez Perez HPI: 10/10 17:50 This 45 yrs old Black Male presents to ER via EMS with complaints of Back Pain. [facility] 17:50 This is a 45-year-old male with history of diabetes mellitus the presents emerged [facility] department with complaints of left-sided chest pain and lower coccygeal back pain. Denies shortness of breath. Patient called EMS with blood glucose level above limits. IV fluids given blood glucose lowered to 485. Patient states symptoms started today with body aches, left-sided chest pain. Denies neck pain or stiffness, denies headache, denies vomiting or diarrhea, denies cough, denies sore throat.. Historical: - Allergies: 17:54 No Known Allergies; ap3 - PMHx: 17:54 diabetes mellitus; ap3 - Immunization history:: Client reports having NOT received the Covid vaccine. - Social history:: Smoking status: Patient reports the use of cigarette tobacco products, smokes one pack cigarettes per day. ROS: 17:50 Constitutional: Positive for body aches, chills, fever. [facility] 17:50 Cardiovascular: Positive for chest pain. 17:50 Respiratory: Negative for cough. 17:50 All other systems are negative. Exam: 17:50 Constitutional: This is a well developed, well nourished patient who is awake, alert, [facility] and in no acute distress. Head/Face: atraumatic. Eyes: EOMI, no conjunctival erythema appreciated ENT: Moist Mucus Membranes Neck: Trachea midline, Supple Chest/axilla: Normal chest wall appearance and motion. 17:50 Respiratory: Normal respirations, no respiratory distress appreciated Abdomen/GI: Non distended, soft Back: Normal ROM Skin: General appearance color normal MS/ Extremity: Moves all extremities, no obvious deformities appreciated, no edema noted to the lower extremities Neuro: Awake and alert Psych: Behavior is normal, Mood is normal, Patient is cooperative and pleasant 17:50 Cardiovascular: Rate: normal, Rhythm: regular. Vital Signs: 17:50 BP 115 / 92; Pulse 101; Resp 26; Temp 101.5; Pulse Ox 99% ; ap3 17:58 Weight 85 kg; ap3 18:29 BP 134 / 70; Pulse 109; Resp 19; Pulse Ox 100% on R/A; ap3 20:30 BP 97 / 59; Pulse 103; Resp 18; Pulse Ox 93% on R/A; sm5 21:06 Pulse Ox 97% on R/A; la1 21:41 BP 108 / 59; Pulse 99; Resp 18; Pulse Ox 100% on R/A; sm5 22:00 Temp 101.9(O); sm5 22:25 BP 112 / 55; Pulse 99; Resp 17; Pulse Ox 98% on R/A; kd3 21:06 with ambulation la1 MDM: 17:53 Patient medically screened. [facility] 19:52 Data reviewed: vital signs, nurses notes. Counseling: I had a detailed discussion with gurjit the patient and/or guardian regarding: the historical points, exam findings, and any diagnostic results supporting the discharge/admit diagnosis, lab results, the need for further work-up and treatment in the hospital. ED course: I discussed the patient with Ori Hickey whom accepted the patient to Dr. Mcgovern's service. . 20:57 ED course: I was consulted for admission for fever of unknown origin, chest pain/back la1 pain. After admission discussion COVID test came back +. Patient is not vaccinated for COVID, reports his symptoms began today with fever, also has history of diabetes he is at risk for clinical worsening of COVID. For this reason patient was offered treatment with monoclonal antibodies which are offered at her facility. Verbal consent was obtained patient was ambulated maintain saturations greater than 97% on room air even with exertion. His troponin is negative his EKG shows some T wave depressions but similar to previous EKGs patient pain-free at this time reports he is feeling much better. Plan is for administration of monoclonal antibodies and discharged home with strict return precautions. Also addressed patient's blood sugar control will provide with diabetes education recommend follow-up with primary care doctor.. 10/10 17:50 Order name: COVID-19 (Coronavirus) Document "Date of Onset" if Symptomatic ap3 10/10 17:54 Order name: Blood Culture Adult (2) [facility] 10/10 17:54 Order name: CBC with Diff; Complete Time: 18:18 [facility] 10/10 17:54 Order name: CMP; Complete Time: 18:49 [facility] 10/10 17:54 Order name: Lactate; Complete Time: 19:10 [facility] 10/10 17:54 Order name: Protime (+inr); Complete Time: 18:25 [facility] 10/10 17:54 Order name: Ptt, Activated; Complete Time: 18:25 [facility] 10/10 17:54 Order name: Urine Culture [facility] 10/10 17:54 Order name: Urine Microscopic Only; Complete Time: 19:28 [facility] 10/10 17:58 Order name: Influenza Screen (a \\T\\ B); Complete Time: 19:10 [facility] 10/10 17:58 Order name: SARS-COV-2 RT PCR (Document "Date of Onset" if Symptomatic); Complete Time: [facility] 19:54 10/10 18:02 Order name: ABG; Complete Time: 18:49 [facility] 10/10 19:06 Order name: Urine Dipstick-Ancillary; Complete Time: 19:10 [facility] 10/10 19:37 Order name: Troponin High Sensitivity; Complete Time: 20:38 [facility] 10/10 17:54 Order name: Chest Single View XRAY; Complete Time: 19:10 [facility] 10/10 17:54 Order name: Accucheck; Complete Time: 18:27 [facility] 10/10 17:54 Order name: Cardiac monitoring; Complete Time: 17:58 [facility] 10/10 17:54 Order name: EKG - Nurse/Tech; Complete Time: 18:13 [facility] 10/10 17:54 Order name: IV Saline Lock - Large Bore; Complete Time: 17:58 [facility] 10/10 17:54 Order name: Labs collected and sent; Complete Time: 18:13 [facility] 10/10 17:54 Order name: O2 Per Protocol; Complete Time: 17:58 [facility] 10/10 18:50 Order name: CT Aorta for Dissection; Complete Time: 19:42 [facility] 10 19:46 Order name: Glucose, Ancillary Testing; Complete Time: 19:54 EDMS 10 17:54 Order name: O2 Sat Monitoring; Complete Time: 17:58 [facility] 10/10 17:54 Order name: Urine Dipstick-Ancillary (obtain specimen); Complete Time: 19:06 [facility] 10/10 20:39 Order name: Misc. Order: albulate, obtain pulse ox with exertion; Complete Time: 20:43 la1 10/10 20:47 Order name: Sesar. Order: Give Bebtelovimad 175mg IV over one minute. Observe for 60 la1 minutes after dose complete.; Complete Time: 21:04 Administered Medications: 18:12 Drug: Rocephin (cefTRIAXone) 1 grams Route: IV; Rate: calculated rate; Site: right ap3 antecubital; 18:27 Follow up: IV Status: Completed infusion; IV Intake: 100ml ap3 18:13 Drug: Acetaminophen 1000 mg Route: PO; ap3 18:27 Follow up: Response: No adverse reaction ap3 18:13 Drug: NS 0.9% (30 ml/kg) 30 ml/kg Route: IV; Rate: bolus; Site: right antecubital; ap3 22:27 Follow up: Response: No adverse reaction; IV Status: Completed infusion kd3 18:28 Drug: Insulin Regular Human 10 units {Co-Signature: papo (Zainab Smith RN).} Route: ap3 IVP; Site: right antecubital; 18:53 Follow up: Response: No adverse reaction barros 19:39 Drug: morphine 4 mg Route: IVP; Infused Over: 4 mins; Site: left forearm; sm5 22:08 Follow up: Response: Pain is decreased sm5 22:26 Follow up: Response: No adverse reaction kd3 19:39 Drug: Zofran (Ondansetron) 4 mg Route: IVP; Site: left forearm; sm5 22:08 Follow up: Response: No adverse reaction sm5 22:26 Follow up: Response: No adverse reaction kd3 22:12 Drug: Ibuprofen 800 mg Route: PO; kd3 22:26 Follow up: Response: No adverse reaction kd3 Disposition Summary: 10/10/21 21:25 Discharge Ordered Location: Home(10/10/21 21:25) la1 Problem: new(10/10/21 21:25) la1 Symptoms: have improved(10/10/21 21:25) la1 Condition: Stable(10/10/21 21:25) la1 Diagnosis - SARS-associated coronavirus as the cause of diseases classified elsewhere la1 - Fever presenting with conditions classified elsewhere la1 - Chest pain, unspecified(10/10/21 21:25) la1 - Low back pain la1 - Diabetes mellitus due to underlying condition with hyperglycemia la1 Followup: la1 - With: Private Physician - When: 2 - 3 days - Reason: Recheck today's complaints, Continuance of care, Re-evaluation by your physician Followup: la1 - With: Emergency Department - When: As needed - Reason: Trouble breathing, Worsening of condition Discharge Instructions: - Discharge Summary Sheet la1 - Nonspecific Chest Pain, Adult la1 - Fever, Adult la1 - Form - Daily Diabetes Record la1 - Type 2 Diabetes Mellitus, Self Care, Adult la1 - COVID-19 la1 - COVID-19 Frequently Asked Questions la1 - Diabetes Basics la1 Forms: - Work release form la1 - Medication Reconciliation Form la1 - Thank You Letter la1 Signatures: Dispatcher [employer] EDMS Jarett Weber PA PA [facility] [place], Ori, PASTER SUPERVISOR-C PASTER SUPERVISOR-Cla1 Neva Malhotra RN RN ap3 Antoinette Gardner RN RN kd3 Natasha Medina RN RN [email or web address] Au-StagerZainab RN Au-Stager ROMA barros Corrections: (The following items were deleted from the chart) 21:01 19:54 Observation [facility] la1 21:01 19:54 Chandra Mcgovern [facility] la1 21:01 19:54 Telemetry/MedSurg (observation) [facility] la1 21:01 19:54 Stable [facility] la1 21:01 19:54 new [facility] la1 21:01 19:54 have improved [facility] la1 21:01 19:54 Standard [facility] la1 21:01 19:54 [facility] la1 21:01 19:54 Chest pain, unspecified [facility] la1 21:01 19:54 Lactic Acidosis [facility] la1 21:01 19:54 Coronavirus [facility] la1 21:01 19:54 Hyperglycemia [place] [id number]
[2021-10-10] MEDS ORDERED: BEBTELOVIMAB 175 MG/2 ML VIAL IV ONE (21:04)
[2021-10-10] MEDS ORDERED: IBUPROFEN 400 MG TAB ONE (22:16)
[2021-10-10 22:39] VITALS: TEMP 101.9
[2021-10-10 22:41] VITALS: BP 112/55; O2SAT 98
--- NOTE | 2021-10-13 13:39 | EKG ---
Test Date: 2021-10-10 Test Time: 19:59:02 [employer]im Die [employer]: BLACK MEASUREMENT RESULTS: Intervals: Rate: 105 CO: 148 QRSD: 94 QT: 318 QTc: 420 Kell: P: 75 CO: 148 QRS: 84 T: 269 INTERPRETIVE STATEMENTS: Sinus tachycardia ST & T wave abnormality, consider inferolateral ischemia Abnormal ECG Compared to ECG 07/17/2021 22:49:30 ST (T wave) deviation now present Sinus rhythm no longer present T-wave abnormality no longer present Possible ischemia still present Electronically Signed On 10-13-21 13:36:59 CDT by Daev Mckeon
== END 2021-10-10 22:26 | disposition home or self-care (01) ==
LOC: ER 17:47
DX: U07.1 COVID-19 (principal); E11.65 Type 2 diabetes mellitus with hyperglycemia; R07.9 Chest pain, unspecified; M54.50 Low back pain, unspecified; F17.210 Nicotine dependence, cigarettes, uncomplicated
CPT/HCPCS: 36415; 71045; 71275; 74175; 80053; 81003; 81015; 82805; 82947; 83605; 84484; 85025; 85610; 85730; 87040; 87086; 87088; 87804; 93005; 99284; J1815; J2405; J7030; J7040; Q9967; U0003